=== PATIENT | female | born 1980 | race Caucasian/White ===

== ENCOUNTER 2017-09-17 14:25 | Emergency (ER) | payer MEDICARE, SELFPAY ==
[2017-09-17 14:26] VITALS: BP 109/77; PULSE 81; RESP 16; TEMP 36.5; O2SAT 96; BMI 23.2
--- NOTE | 2017-09-17 14:37 | ED.VISSUMM ---
- ER Visit Summary Date of Service: 09/17/17 Chief Complaint: Diarrhea History of Present Illness: The patient is a 37 F who presents with diarrhea. She has had this for 3 days. She has 5-6 episodes per day. Nonbloody. She also has some mild abdominal cramping with this. Denies nausea or vomiting. She tried Kaopectate but it did not help. She denies any fevers. She also complains of a scab on the right arm it has been there for 4 months. No bleeding or drainage Physical Examination: Vital signs reviewed. HEENT exam unremarkable. Heart is regular rate and rhythm without murmurs. Lungs are clear to auscultation. Abdomen is soft and nontender. Extremities reveal no edema. Skin exam shows a small scabbed area on the proximal right forearm. No bloody drainage or purulent drainage. Neurologic exam normal. Test Results: None indicated Emergency Department Course and Treatment: Patient will be treated with Imodium for the diarrhea. I do not feel any testing is necessary as her exam is very benign. I will give her bacitracin to put on the wound. She will be given a PCP to follow-up Treatment Plan: [] Disposition: Discharge Impression: Diarrhea, right arm wound This note was generated with Nitro dictation software. It may contain incorrect words, spelling, and punctuation that were not noted in review of the chart prior to signing ED Disposition - Plan for ED Patient: Chief Complaint: Diarrhea Referrals: [facility] Doctor,Out of [Primary Care Provider] -
--- NOTE | 2017-09-17 14:39 | ED.DEP ---
ED Disposition - Plan for ED Patient: Disposition: Home or Assisted Living Chief Complaint: Diarrhea Instructions: ED Diarrhea Viral Prescriptions: Loperamide [Imodium] 2 mg PO Q6H PRN PRN #12 cap PRN Reason: Diarrhea Bacitracin 3.5 gm OP BID #1 oint...g. Referrals: [facility] Doctor,Out of [Primary Care Provider] -
[2017-09-17 15:15] VITALS: PULSE 85; RESP 16; O2SAT 98
== END 2017-09-17 15:17 | disposition home or self-care (01) ==
PROVIDERS: Emergency Provider Emergency Medicine
DX: R19.7 Diarrhea, unspecified (principal); R10.9 Unspecified abdominal pain; M79.7 Fibromyalgia; Z72.0 Tobacco use; R23.4 Changes in skin texture
CPT/HCPCS: 99282

== ENCOUNTER 2017-12-13 17:44 | Emergency (ER) | payer MEDICARE, SELFPAY ==
[2017-12-13 17:45] VITALS: BP 132/85; PULSE 96; RESP 17; TEMP 36.8; O2SAT 99; BMI 24.1
--- NOTE | 2017-12-13 17:57 | NURSING ---
NO LW OR POA
--- NOTE | 2017-12-13 18:37 | EKG12_ITS ---
Test Reason : CP Blood Pressure : / mmHG Vent. Rate : 095 BPM Atrial Rate : 095 BPM P-R Int : 112 ms QRS Dur : 080 ms QT Int : 368 ms P-R-T Axes : 061 -28 073 degrees QTc Int : 462 ms Normal sinus rhythm Low voltage QRS (LIMB LEADS) Confirmed by ERICKSON GUERRERO, SREE ([id number]), make up editor DARRIAN BOYER ([id number]) on 12/17/2017 2:26:02 PM Referred By: JANIE Confirmed By:SREE ALMENDAREZ MD
--- NOTE | 2017-12-13 18:40 | RAD_ITS ---
STUDY: X-RAY CHEST REASON FOR EXAM: Female, 37 years old. Chest pain TECHNIQUE: A single frontal view of the chest was obtained. COMPARISON: December 12, 2014 FINDINGS: The lungs are adequately aerated. There are no focal airspace opacities. There is no demonstrated pleural abnormality. The cardiac silhouette is normal in size. The mediastinum and hilar regions are unremarkable. Normal visualized pulmonary arteries. Normal visualized aortic arch and descending thoracic aorta. There are diffuse degenerative changes of the visualized spine. The visualized ribs, clavicles, and shoulders are unremarkable. There is no demonstrated abnormality of the visualized upper abdomen. RAD/Chest 1 View (Portable) IMPRESSION: No acute cardiopulmonary abnormalities. Electronically Signed: Julita Philip MD at 19:33 EDT Tel Direct: [phone], Service support ,
[2017-12-13 18:49] VITALS: BP 107/84; PULSE 84; RESP 16; O2SAT 96
[2017-12-13] MEDS: Ketorolac 30 MG/ML Syringe IV (18:49)
[2017-12-13 19:04] LABS: Absolute Neutrophil Count 4.9 X10^3/uL (2.0-7.7); Basophil# 0.02 X10^3/uL; Basophil% 0.3 % (0-1); Eosinophil# 0.14 X10^3/uL; Eosinophils% 1.8 % (0-5); Hematocrit 41.3 % (37-47); Hemoglobin 14.3 g/dl (12.0-15.0); Mean Corp Hgb Conc 34.6 g/gl (32-36); Mean Corpuscular Hgb 32.9 pg (27.0-32.0); Mean Corpuscular Volume 94.9 fL (81-99); Mean Platelet Vol. 11.6 fl (6.2-12.0); Monocyte# 0.59 X10^3/uL; Monocyte% 7.7 % (0-10); Neutrophil # 4.93 X10^3/uL (2.7-7.7); Neutrophil % 64.1 % (47-70); Platelet Count 237 K/mm3 (150-450); RBC Distribution Width CV 12.4 % (11.6-14.6); RBC Distribution Width SD 43.3 fl (35.1-43.9); Red Blood Count 4.35 M/mm3 (4.2-5.4); White Blood Count 7.7 K/mm3 (4.4-11.0)
[2017-12-13 19:07] LABS: Anion Gap 5 (5-15); BUN 9 mg/dL (7-18); BUN/Creat Ratio 15.2 RATIO (10-20); Calcium,Total 9.3 mg/dL (8.5-10.1); Chloride 104 mmol/L (98-107); Creatinine, Serum 0.59 mg/dL (0.55-1.02); EST Glomerular Filtration Rate 120 mL/min (>60); Est Glom Filt Rate - Afr Amer 145 mL/min (>60); Estimated Creatinine Clearance 101.25 ml/min; Glucose 102 mg/dL (74-106); Magnesium 2.3 mg/dL (1.6-2.6); Potassium 3.6 mmol/L (3.5-5.1); Sodium Level 138 mmol/L (136-145); Thyroid Stim Hormone (TSH) 0.83 uIU/mL (0.358-3.74)
[2017-12-13 19:29] LABS: POSITIVE COUNT NO; POSITIVE DIFFERENTIAL NO; POSITIVE MORPHOLOGY NO
[2017-12-13 20:07] VITALS: BP 114/81; PULSE 87; RESP 15; O2SAT 98
[2017-12-13] MEDS: Ondansetron ODT 4 MG Tablet 8 MG PO (20:51)
--- NOTE | 2017-12-13 21:08 | ED.VISSUMM ---
- ER Visit Summary Date of Service: 12/13/17 Chief Complaint: Left chest pain History of Present Illness: The patient is a 37 F who states that earlier today she developed some palpitations. She states that her heart seemed to be racing and then she developed burning in the left upper aspect of her chest near her shoulder. And she began to feel some tingling in the left arm. She wonders if this is reaction to the Bactrim she started on Saturday for sinus infection. She states this does not seem like her normal anxiety. She states the symptoms began maybe an hour or hour and a half before arrival in the department and after she arrived to the department her heart beating fast seemed to resolve. Physical Examination: Afebrile vital signs are stable Gen: Well-nourished well-developed Head: Normocephalic atraumatic Eyes: Perrl EOMI ENT: TMs clear no rhinorrhea moist mucous membranes Neck: Supple no lymphadenopathy no JVD nontender CVS: Regular rate rhythm no murmurs normal S1-S2 Respiratory: No distress clear to auscultation bilaterally chest nontender Abdomen: Soft nontender nondistended normal bowel sounds no masses Back: Nontender Extremity: Nontender no edema Skin: Normal color no rash Neuro: alert orientated ?3 CN II-XII intact normal strength sensation reflexes gait cerebellar Psych: Normal affect normal mood Test Results: EKG shows a normal sinus rhythm at a rate of 95. Chest x-ray is negative. CBC chemistries TSH magnesium and troponin negative Emergency Department Course and Treatment: Patient developed some nausea. She received Zofran. Patient's KALE score 0. I do not believe this is pulmonary embolism, ACS, dissection, or other life-threatening event. We talked about the possibility of shingles in his she should return to the emergency department. Patient is comfortable with home observation and ibuprofen. Return if worsening or concerns Impression: 1. Atypical chest pain This note was generated with QuantumSphere dictation software. It may contain incorrect words, spelling, and punctuation that were not noted in review of the chart prior to signing ED Disposition - Plan for ED Patient: Disposition: Home or Assisted Living Chief Complaint: Chest Pain Instructions: ED Chest Pain Atypical Unkn Cause Referrals: Fast,Lena, DO [NON-STAFF] - 1 Week if not improving
[2017-12-13 21:22] VITALS: BP 112/82; PULSE 85; RESP 15; O2SAT 100
== END 2017-12-13 21:22 | disposition home or self-care (01) ==
PROVIDERS: Emergency Provider Emergency Medicine
DX: R07.89 Other chest pain (principal); R20.2 Paresthesia of skin; R11.0 Nausea; J32.9 Chronic sinusitis, unspecified; F32.9 Major depressive disorder, single episode, unspecified; Z79.899 Other long term (current) drug therapy; Z72.0 Tobacco use
CPT/HCPCS: 71045; 80048; 83735; 84443; 84484; 85025; 93005; 96374; 99285

== ENCOUNTER 2020-06-03 16:49 | Emergency (ER) | payer MEDICARE, SELFPAY ==
[2020-06-03 16:50] VITALS: BP 105/88; PULSE 104; RESP 18; TEMP 37.1; O2SAT 96; BMI 23.2
--- NOTE | 2020-06-03 17:16 | ED.RN ---
PT STATED THAT SHE WAS GOING TO [facility]
== END 2020-06-03 18:06 ==
PROVIDERS: Emergency Provider Emergency Medicine
DX: R11.2 Nausea with vomiting, unspecified (principal); R19.7 Diarrhea, unspecified

== ENCOUNTER 2020-08-28 20:02 | Emergency (ER) | payer MEDICARE, MEDICAID, SELFPAY ==
[2020-08-28 20:03] VITALS: BP 145/78; PULSE 77; RESP 18; TEMP 36.7; O2SAT 99; BMI 23.2
--- NOTE | 2020-08-28 20:35 | CT_ITS ---
STUDY: CT ABDOMEN AND PELVIS WITHOUT CONTRAST REASON FOR EXAM: Female, 39 years old. Flank pain RADIATION DOSAGE (If Supplied By Facility): CTDIvol = ( 6.14 ) mGy, DLP = ( 286.89 ) mGycm TECHNIQUE: Transaxial images were obtained from the dome of the diaphragm to the symphysis pubis without oral contrast, and without intravenous contrast. Sagittal and coronal images were reconstructed. Individualized dose optimization techniques were used for this CT. COMPARISON: None. FINDINGS: The visualized lung bases are unremarkable. The visualized portions of the heart are within normal limits. There is hepatomegaly with diffuse hepatic enlargement. Normal gallbladder and extrahepatic biliary system. Normal spleen. Normal pancreas. Normal bilateral adrenal glands. Normal right kidney. Normal left kidney. No definite renal or ureteral stones are seen. There is no hydronephrosis on either side. Evaluation of the GI tract is limited by absence of oral contrast. Cannot exclude stomach wall thickening. No dilated loops of bowel or evidence for obstruction. Cannot exclude segmental thickening of the santos of the small or large bowel. Cannot exclude enteritis or colitis. Marked diffuse fecal retention. Appendix within normal limits. Normal abdominal aorta. Normal inferior vena cava. Normal retroperitoneum. Normal urinary bladder. There is absence of the uterus consistent with a prior hysterectomy. Normal abdominal wall. Normal osseous structures. CT/Abdomen/Pelvis without Cont IMPRESSION: No definite acute abnormality. No renal or ureteral stones. Marked diffuse fecal retention. Electronically Signed: Desmond Maher MD at 21:53 EDT , Service support ,
--- NOTE | 2020-08-28 20:38 | ED.VIS.GEN ---
History of Present Illness Chief Complaint: Abd Pain Narrative: Patient is a 39-year-old female who presents with abdominal pain. She initially noted right lower quadrant pain this morning but it seemed to improve through the day. It returned and was more severe and she also now has nausea. Her pain is sharp and stabbing. It does radiate through to the back. It is colicky. No history of prior similar symptoms. No urinary symptoms such as dysuria, frequency, urgency. She has had a hysterectomy. She reports nausea without vomiting. No diarrhea. No fevers. No history of ureterolithiasis. Past Medical History - Allergies and Home Meds Allergies/Adverse Reactions: Allergies dicyclomine HCl [From Bentyl] Allergy (Verified 08/28/20 20:05) Itching Iodinated Contrast Media Allergy (Verified 08/28/20 20:05) Other venom-honey bee [bee venom (honey bee)] Allergy (Verified 08/28/20 20:05) Anaphylaxis Primary Care Physician: Care Physician,No Primary [Primary Care Provider] - Past Medical History: None Surgical History: hysterectomy Smoking Status: Current every day smoker Review of Systems All systems negative except as indicated General: Denies: Fever Eyes: Denies: Visual changes - bilaterally ENT: Denies: Bilateral ear pain Cardiovascular: Denies: Chest pain Respiratory: Denies: Dyspnea Gastrointestinal: Reports: Abdominal pain, Nausea. Denies: Vomiting, Diarrhea Genitourinary: Denies: Dysuria, Frequency Musculoskeletal: Denies: Myalgias, Arthralgias Skin: Denies: Rash Neurological: Denies: Headache Hematologic: Denies: Easy bruising Allergy: Denies: Uticaria Physical Exam Vital Signs/Narrative: Vital Signs Temp Pulse Resp BP Pulse Ox 08/28/20 20:03 98.0 F 77 18 145/78 H 99 Inital Vital Signs reviewed: Yes General: Well nourished Head: Normocephalic Eyes: EOMI ENT: Moist mucous membranes Neck: Supple Cardiovascular: Regular rate, Regular rhythm Respiratory: No distress, CTA bilaterally Abdomen: Soft, Nondistended, Tender - Patient has right lower quadrant abdominal tenderness without guarding without rebound Skin: Normal color Neurological: Alert Psychological: Normal affect Diagnostic/Tx/Re-eval Impressions Abdomen/Pelvis CT 08/28/20 20:35 IMPRESSION: No definite acute abnormality. No renal or ureteral stones. Marked diffuse fecal retention. Electronically Signed: Desmond Maher MD at 21:53 EDT , Service support , 08/28/20 20:35 Abdomen/Pelvis without Cont [CT] Stat Laboratory Results 08/28/20 08/28/20 08/28/20 20:20 20:58 20:58 WBC 8.6 RBC 4.58 Hgb 14.4 Hct 42.8 MCV 93.4 MCH 31.4 MCHC 33.6 RDW Std Deviation 42.6 RDW Coeff of Favian 12.3 Plt Count 230 MPV 11.6 Immature Gran % (Auto) 0.100 Neut % (Auto) 66.8 Lymph % (Auto) 24.1 [place] % (Auto) 7.5 Eos % (Auto) 0.9 Baso % (Auto) 0.6 Absolute Neuts (auto) 5.7 Absolute Lymphs (auto) 2.07 Nucleated RBC % 0 Sodium 137 Potassium 3.5 Chloride 106 Carbon Dioxide 25.0 Anion Gap 6 BUN 7 Creatinine 0.46 L Estim Creat Clear Calc 127.29 Est GFR (MDRD) Af Amer 189 Est GFR (MDRD) Non-Af 156 BUN/Creatinine Ratio 15.1 Glucose 71 L Calcium 9.4 Urine Color Yellow Urine Clarity Sl. Cloudy Urine pH 8.0 Ur Specific [place] 1.015 Urine Protein Negative Urine Glucose (UA) 250 H Urine Ketones Negative Urine Occult Blood Negative Urine Nitrite Negative Urine Bilirubin Negative Urine Urobilinogen Normal Ur Leukocyte Esterase Negative Urine RBC 0 SEEN Urine WBC 0-5 SEEN Ur Squamous Epith Cells 0-5 SEEN Urine Bacteria 1+ Urine Mucus 0 SEEN - Medical Decision Making Patient was given IV fluids, Toradol, Zofran. She is improved on reevaluation. Laboratory studies and urinalysis unremarkable. CT of the abdomen pelvis shows marked fecal retention otherwise no acute findings. Patient was advised of these findings. She was advised to start a laxative such as MiraLAX. She understands to return for new or worsening symptoms and was advised on signs and symptoms to monitor for. Patient discharged. ED Disposition - Plan for ED Patient: Disposition: Home or Assisted Living Diagnosis: Abdominal pain, Constipation Instructions: ED Constipation (Adult), ED Unknown Causes of Abdominal ... Referrals: Care Physician,No Primary [Primary Care Provider] -
[2020-08-28] MEDS: Ondansetron 4 MG/2 ML Vial IV (21:02)
[2020-08-28] MEDS: Ketorolac 30 MG/ML Syringe IV (21:02)
[2020-08-28] MEDS: 0.9% Normal Saline 1,000 ML 1000 ML IV (21:02)
[2020-08-28 21:12] LABS: Mucous, Urine 0 SEEN /hpf (<or=2+); Red Blood Cells-Urine 0 SEEN /hpf (0-5)
[2020-08-28 21:13] LABS: Absolute Lymphocyte Count 2.07 X10^3/uL (0.83-4.51); Absolute Neutrophil Count 5.7 X10^3/uL (2.0-7.7); Basophil# 0.05 X10^3/uL; Basophil% 0.6 % (0-1); Eosinophil# 0.08 X10^3/uL; Eosinophils% 0.9 % (0-5); Hematocrit 42.8 % (37-47); Hemoglobin 14.4 g/dL (12.0-15.0); Lymphocyte # 2.07 X10^3/ul (4.0); Lymphocyte % 24.1 % (19-41); Mean Corp Hgb Conc 33.6 g/dL (32-36); Mean Corpuscular Hgb 31.4 pg (27.0-32.0); Mean Corpuscular Volume 93.4 fL (81-99); Mean Platelet Vol. 11.6 fl (6.2-12.0); Monocyte# 0.64 X10^3/uL; Monocyte% 7.5 % (0-10); NRBC Flagged by Analyzer 0 % (0-5); Neutrophil # 5.74 X10^3/uL (2.7-7.7); Neutrophil % 66.8 % (47-70); Platelet Count 230 K/mm3 (150-450); RBC Distribution Width CV 12.3 % (11.6-14.6); RBC Distribution Width SD 42.6 fl (35.1-43.9); Red Blood Count 4.58 M/mm3 (4.2-5.4); White Blood Count 8.6 K/mm3 (4.4-11.0)
[2020-08-28 21:14] LABS: Color, Urine Yellow (Yellow); Glucose, Dipstick 250 mg/dl (Normal); Ketone-Dipstick Negative (Negative); Leukocyte Esterase-Dipstick Negative /ul (Negative); Nitrite-Dipstick Negative (Negative); Occult Blood-Urine Negative /ul (Negative); Protein-Dipstick Negative (Negative); Specific Gravity, Urine 1.015 (1.002-1.030); Urine Bilirubin Dipstick Negative (Negative); Urine Clarity Sl. Cloudy (Clear); Urine Urobilinogen Normal (Normal)
[2020-08-28 21:22] LABS: Bacteria 1+ /hpf (None Seen); Squamous Epithelial Cells - UA 0-5 SEEN /hpf (5-10); White Blood Cells 0-5 SEEN /hpf (0-5)
[2020-08-28 21:26] LABS: Anion Gap 6 (5-15); BUN 7 mg/dL (7-18); BUN/Creat Ratio 15.1 RATIO (10-20); Calcium,Total 9.4 mg/dL (8.5-10.1); Chloride 106 mmol/L (98-107); Creatinine, Serum 0.46 mg/dL (0.55-1.02); EST Glomerular Filtration Rate 156 mL/min (>60); Est Glom Filt Rate - Afr Amer 189 mL/min (>60); Estimated Creatinine Clearance 127.29 ml/min; Glucose 71 mg/dL (74-106); Potassium 3.5 mmol/L (3.5-5.1); Sodium Level 137 mmol/L (136-145)
[2020-08-28 22:11] VITALS: BP 128/74; PULSE 78; RESP 18; O2SAT 100
== END 2020-08-28 22:12 | disposition home or self-care (01) ==
PROVIDERS: Emergency Provider Emergency Medicine
DX: R10.31 Right lower quadrant pain (principal); K59.00 Constipation, unspecified; F17.200 Nicotine dependence, unspecified, uncomplicated; R11.0 Nausea
CPT/HCPCS: 74176; 80048; 81001; 85025; 96361; 96374; 96375; 99283; J7030; A4216; J2405

== ENCOUNTER 2021-08-11 00:26 | Inpatient (IN) | payer MEDICARE, MEDICAID, SELFPAY ==
[2021-08-11] VITALS (13 sets, daily range): BP systolic 95–129; BP diastolic 53–90; PULSE 57–88; RESP 16; TEMP 36.6–36.7; O2SAT 97–100; BMI 23.5; BMI 22.8
--- NOTE | 2021-08-11 00:50 | CT_ITS ---
STUDY: CT BRAIN WITHOUT CONTRAST REASON FOR EXAM: Female, 40 years old. Seizure. TECHNIQUE: Transaxial CT imaging of the brain was performed without administration of intravenous contrast material. Individualized dose optimization techniques were used for this CT. COMPARISON: 08/31/2013 CT brain. FINDINGS: No evidence of intracranial hemorrhage, mass, infarct or hydrocephalus. No skull fracture. Visualized paranasal sinuses and mastoid air cells patent. Visualized extracranial soft tissues unremarkable. ASPECTS [address]/Brain/Head without Contrast IMPRESSION: Negative CT brain without contrast. Electronically Signed: Trip Alexis MD at 1:47 EDT Reading Location ID and State: [facility] / [place] Tel , Service support ,
--- NOTE | 2021-08-11 00:50 | EKG12_ITS ---
Test Reason : SZ Blood Pressure : / mmHG Vent. Rate : 067 BPM Atrial Rate : 067 BPM P-R Int : 120 ms QRS Dur : 086 ms QT Int : 424 ms P-R-T Axes : 075 -31 073 degrees QTc Int : 448 ms Normal sinus rhythm Left axis deviation Abnormal ECG Confirmed by OPAL GUERRERO, MARIANNE ([id number]), fashion editor BRITANY TALLEY ([id number]) on 08/14/2021 10:32:21 AM Referred By: Confirmed By:MARIANNE JOSEPH MD
--- NOTE | 2021-08-11 00:51 | EDS_ITS ---
HPI History of Present Illness Chief Complaint: Seizure Informant: patient and EMS Narrative Narrative: Presents by EMS from home for multiple seizure episodes this evening. Patient hard of hearing does not have her hearing aids however can read lips. Reported total of 5. Reported tonic-clonic patient does not recall the event. She is back to baseline reporting only fatigue. Reports history of absent and grand mal seizures she reports she was on Neurontin in the past however last seizure was 12 years ago she is weaned off of her Neurontin. Denies urinary symptoms. Total hysterectomy in the past. No cough. No recent vomiting or diarrhea. States did hit her head with one of the seizures. She states she was at a bar this evening drink 3 daiquiri's, she states she goes every 3 to 4 weeks usually drinks more. Denies recreational drug use. Prior similar symptoms: Yes PFSH PFSH Medical History Fibromyalgia Low glucose level Migraine Seizure Home Medications epinephrine 0.3 mg IM PRN 10/10/13 [History Last Taken Unknown] lorazepam 0.5 mg PO TID PRN PRN 09/17/17 [History Last Taken Unknown] Allergy/AdvReac Type Severity Reaction Status Date / Time dicyclomine HCl [From Bentyl] Allergy Itching Verified 08/11/21 00:35 Iodinated Contrast Media Allergy Other Verified 08/11/21 00:35 venom-honey bee Allergy Anaphylaxis Verified 08/11/21 00:35 [bee venom (honey bee)] Surgical History H/O: hysterectomy Social History Smoking Status: Former smoker ROS ROS ED Constitutional Constitutional ED: Denies chills, fever(s) or sweats Eyes Eyes: Denies change in vision ENT ENT ED: Denies dysphagia or sore throat Cardiovascular Cardiovascular: Denies chest pain, leg edema, palpitations or racing heartbeat Respiratory/Chest Respiratory/Chest: Denies cough, dyspnea or dyspnea on exertion Gastrointestinal Gastrointestinal: Denies abdominal pain, diarrhea, nausea or vomiting Genitourinary Genitourinary ED: Denies dysuria, hematuria or urinary frequency Musculoskeletal Musculoskeletal: Denies back pain, extremity pain or neck pain Integumentary Denies rash or wounds Neurologic Neurologic: Reports headache(s) and other Details: Seizures ; Denies paresthesias or weakness EXAM Physical Exam Const Vital Signs: 08/11/21 00:30 08/11/21 00:35 Temperature 97.9 F Temperature Source Temporal Pulse Rate 71 Respiratory Rate 16 Blood Pressure 129/90 H 129/90 H Blood Pressure Mean 103 103 Pulse Ox 100 Oxygen Delivery Method Room Air Positive well nourished and well developed Constitutional Narrative: GCS 15. General Appearance ED: well developed and NAD HEENT Reports TM's clear and moist mucous membranes normocephalic and atraumatic; Negative for trauma Tympanic Membrane ED: Yes TM's clear Eyes PERRL, EOMs intact bilaterally and conjunctivae normal General Eye ED: Yes normal appearance of both eyes Neck no lymphadenopathy and supple General: Negative for tenderness Chest Wall Chest: Negative for tenderness Resp normal respiratory effort and normal air movement Effort and Inspection: symmetric chest movement; Negative for respiratory distress Cardio regular rate, regular rhythm and no murmurs Peripheral Pulses: pulses 2+ throughout GI normal to inspection, nondistended, normoactive bowel sounds and non-tender Palpation: Negative for guarding or rebound tenderness present Back/Spine no CVA tenderness and no thoracic nor lumbar tenderness Extremity normal to inspection General Extremety ED: Negative for edema or tenderness General Extremity: Negative for edema Neuro oriented x3, CN's II-XII intact bilaterally and no sensory deficits noted Sensorium / Orientation: awake and alert Skin no rashes or lesions noted and no wounds MDM MDM MDM Narrative Medical decision making narrative: Recurrent seizures last one being [address] head is ordered, laboratory studies, UA and tox screen. Seizure precautions. Currently back to baseline with only fatigue symptoms. Patient will be started on Keppra IV. With multiple episodes of seizures recurrent not on medications will likely need admission. I discussed with hospitalist Dr. Garcia on her arrival and evaluation. He will evaluate the patient. 0220: In the interim system went down time for upgrades. Results of CT brain by paper reviewed negative. Labs hemoglobin 14.5 sodium 140 creatinine 0.60. No recurrent seizures on reevaluation. Patient pending urine collection at this time. Patient admitted to PCU under hospitalist service. Tox screen returned negative. Urine also negative for infection. Lab Data Attestation: I reviewed the patient's lab results. Labs: Laboratory Results - last 24 hr 08/11/21 08/11/21 00:30 00:30 Sodium 140 Potassium 3.6 Chloride 105 Carbon Dioxide 28.0 Anion Gap 7 BUN 6 L Creatinine 0.60 Estim Creat Clear Calc 96.60 Est GFR (MDRD) Af Amer 141 Est GFR (MDRD) Non-Af 116 BUN/Creatinine Ratio 10.0 Glucose 79 Calcium 9.9 Phosphorus 2.8 Magnesium 2.3 Total Bilirubin 0.50 AST 13 L ALT 20 Alkaline Phosphatase 79 Total Protein 7.4 Albumin 4.2 Globulin 3.2 Albumin/Globulin Ratio 1.3 Radiography Diagnostic Testing: Clinical Impression(s) from Imaging Studies Brain CT 08/11/21 00:50 IMPRESSION: Negative CT brain without contrast. Electronically Signed: Trip Alexis MD at 1:47 EDT Reading Location ID and State: [address] [place] [address] Tel , Service support , Discharge Plan Dx/Rx/DC Orders Clinical Impression: Recurrent seizures Disposition Disposition: Acute Care Hospital [facility] Discharge Date/Time: 08/11/21 03:15
--- NOTE | 2021-08-11 02:28 | HP.PCM.HOS_ITS ---
HPI - General General Date of Admission: 08/11/21 Date of Service: 08/11/21 Chief Complaint: Recurrent seizure episode on 08/11/2019 tonight HPI Narrative YARIEL JACOBSEN, is a 40 F was brought to ED by EMS escort for recurrent episode of seizures. She has history of seizure disorder last episode about 12 years ago. She was weaned off gabapentin by the neurologist 6 years ago. Last night, she came to home about 10 PM from the bar after 3 glasses of a strawberry daiquiris, and kind of cocktail alcohol and she did not feel well. She was feeling out of her body as he described me with lightheadedness. She went to the bathroom and then laid down on the floor. She was in the bathroom for a while therefore went into the bathroom to check her. As per her daughter, Jaden whom I talked on phone and her son present in the room, she had recurrent 4-5 episodes each lasting for about 2 seconds. During seizure episode she was not responding verbally or with touch, blank look with eyes rolled out. No urinary or fecal incontinence. No nausea, vomiting, diarrhea or headache. No tongue bite. Her daughter described her body was stiff and hard but no clonic rhythmic movement. She called EMS when EMS picked her up she came back to her normal self. She herself does not remember the episode. She normally drinks 4 strawberry cocktail every 3 to 4 weeks but did not had this kind of seizure episode. She also has history of smoking in the past but she quit in July 2020. Other comorbidities include migraine headache, anxiety and depression, restless leg syndrome. She takes Midrin for acute migraine headache. Not on prophylac tic migraine medication. Family history is positive for migraine headache and seizure in her mother. In ED, initial work-up was nondiagnostic. EKG normal sinus rhythm LAD 67 respond. CTA does not show acute change. Labs reviewed. [facility] Medical History Seizure Home Medications epinephrine 0.3 mg IM PRN 10/10/13 [History Last Taken Unknown] lorazepam 0.5 mg PO TID PRN PRN 09/17/17 [History Last Taken Unknown] Allergy/AdvReac Type Severity Reaction Status Date / Time dicyclomine HCl [From Bentyl] Allergy Itching Verified 08/11/21 00:35 Iodinated Contrast Media Allergy Other Verified 08/11/21 00:35 venom-honey bee Allergy Anaphylaxis Verified 08/11/21 00:35 [bee venom (honey bee)] Surgical History H/O: hysterectomy Social History Smoking Status: Former smoker ROS ROS Narrative 14 ROS is incomplete because of seizure episode and acute encephalopathy. Rest as mentioned by her daughter on phone and son. Constitutional: Reports fatigue and weakness. Admission HPI. No fever, cough, URI or flulike symptoms or UTI. HEENT: Reports systems reviewed and no addt'l complaints, except as documented Respiratory/Chest: Denies chest pain, shortness of breath at rest or with exertion Gastrointestinal: Denies coffee ground emesis, hematemesis or vomiting Genitourinary: Denies burning urination or new urinary tract symptoms Musculoskeletal: Denies joint pain or arthritis. As fibromyalgia. Neurologic: No acute headache. History of chronic migraine headache skin: No ulcer. No rash Endocrinology: Reports systems reviewed and no addt'l complaints, except as documented Hematologic/Lymphatic: Reports systems reviewed and no addt'l complaints, except as documented Vital Signs Vital Signs Vital Signs: 08/11/21 00:30 08/11/21 00:35 Temperature 97.9 F Temperature Source Temporal Pulse Rate 71 Respiratory Rate 16 Blood Pressure 129/90 H 129/90 H Blood Pressure Mean 103 103 Pulse Ox 100 Oxygen Delivery Method Room Air Weight Weight: 128 lb 11.999 oz Body Mass Index (BMI) 23.5 Physical Exam Narrative General: Alert, Oriented x3, Cooperative, mild fatigue HEENT: Atraumatic, PERRLA, EOMI, Normocephalic Oral: Oral mucosa dry. No Gingival or Mucosal Lesions/ Ulcerations Neck: Supple, No JVD, Negative Carotid Bruits Lungs: Air entry diminished in bilateral lung bases. No crepitation/rhonchi Cardiovascular: Regular rate, Regular Rhythm, Normal S1, Normal S2, No murmurs Abdomen: Bowel Sounds Present, Soft, Non Tender, Non-Distended : No renal angle tenderness. No suprapubic tenderness. Extremities: No edema, Capillary Refill Less than 3 Seconds Skin: No rashes, No breakdown Musculoskeletal: No Tenderness to Palpation of Joints or Extremities Neurological: Cranial nerves II-XII grossly intact, DTR 2+/4 and Symmetrical, Neuro grossly intact. No seizure episode in ED Psych/Mental Status: Flat affect. Results Lab / Micro Data Result Diagrams: 08/11/21 00:30 08/11/21 00:[address] 08/11/21 00:50 IMPRESSION: Negative CT brain without contrast. Electronically Signed: Trip Alexis MD at 1:47 EDT Reading Location ID and State: [facility] / [place] Tel , Service support , Assessment & Plan Assessment/Plan (1) Recurrent seizures: PLAN: 1. Recurrent seizure suggestive of epilepsy most likely generalized tonic seizure: The exact type, class of epilepsy is unclear. In the past patient has has seen multiple neurologist for migraine and seizure episode. Her migraine episodes required Decadron and Depakote. As per neurologist note on August 2013 she refused AED and migraine headache prophylactic medication. Patient started on IV 1 g Keppra and then 500 mg IV every 12 hourly. Ativan 1 mg IV every 4 hourly as needed for acute seizure episode. IV fluid normal saline ordered 2. Acute encephalopathy most likely due to seizure episode: Resolved. Serum potassium 3.6. BUN/creatinine normal. Serum sodium, chloride and bicarb normal. AST and ALT normal. UA and U tox pending. Patient denies acute burning micturition or neurologic intact symptoms. No signs or symptoms suggestive of infection in the history. 3. Chronic migraine headache: Advised to follow-up with neurologist as an outpatient for starting prophylactic migraine medication. During hospital course, Motrin 400 to 6 mg q. 4 hourly as needed for acute migraine headache. For severe headache, consider triptan. At present she does not have a headache. 4. Other comorbidities include fibromyalgia, anxiety and depression: Patient is not any specific medication for fibromyalgia. Home medication shows lorazepam 0.5 mg p.o. 3 times daily as needed, exact indication unclear, perhaps for anxiety. VT prophylaxis, moderate risk: Lovenox 40 subcu daily discontinue if platelet count drops less than 50,000 or hemoglobin less than 8 g% Full code. Charges/Coding Visit Charges Inpatient E&M: 45122 Init Hosp L3
[2021-08-11 02:29] LABS: ALB/GLOB Ratio 1.3 RATIO (0.9-2.4); AST(SGOT) 13 U/L (15-37); Alanine Aminotransfer ALT/SGPT 20 U/L (13-56); Albumin, Serum 4.2 g/dL (3.2-5.0); Alkaline Phosphatase 79 U/L (45-117); Anion Gap 7 (5-15); BUN 6 mg/dL (7-18); Calcium,Total 9.9 mg/dL (8.5-10.1); Chloride 105 mmol/L (98-107); EST Glomerular Filtration Rate 116 mL/min (>60); Est Glom Filt Rate - Afr Amer 141 mL/min (>60); Globulin 3.2 g/dL (2.2-4.2); Glucose 79 mg/dL (74-106); Potassium 3.6 mmol/L (3.5-5.1); Protein, Total 7.4 g/dL (6.4-8.2); Sodium Level 140 mmol/L (136-145)
[2021-08-11 02:43] LABS: Mucous, Urine 0 SEEN /hpf (<or=2+); Red Blood Cells-Urine 0 SEEN /hpf (0-5)
[2021-08-11 02:48] LABS: Color, Urine Yellow (Yellow); Glucose, Dipstick 1000 mg/dl (Normal); Ketone-Dipstick 15 mg/dl (Negative); Leukocyte Esterase-Dipstick Negative /ul (Negative); Nitrite-Dipstick Negative (Negative); Occult Blood-Urine 25 /ul (Negative); Protein-Dipstick 30 mg/dl (Negative); Specific Gravity, Urine 1.015 (1.002-1.030); Urine Bilirubin Dipstick Negative (Negative); Urine Clarity Clear (Clear); Urine Urobilinogen Normal (Normal)
[2021-08-11 02:54] LABS: Magnesium 2.3 mg/dL (1.6-2.6); Phosphorus 2.8 mg/dL (2.5-4.9)
[2021-08-11 02:56] LABS: Amorphous Sediment 2+; Bacteria RARE /hpf (None Seen); White Blood Cells 0-5 SEEN /hpf (0-5)
[2021-08-11 02:57] LABS: Squamous Epithelial Cells - UA 0-5 SEEN /hpf (5-10)
[2021-08-11 03:33] LABS: Amphetamine Urine VISTA NEGATIVE (<1000 ng/mL); Barbiturate Urine VISTA NEGATIVE (< 200 ng/mL); Benzodiazepine Urine VISTA NEGATIVE (< 200 ng/mL); Cocaine Urine VISTA NEGATIVE (< 300 ng/mL); Ecstacy Urine VISTA NEGATIVE (< 500 ng/mL); Methadone Urine VISTA NEGATIVE (< 300 ng/mL); PCP Urine VISTA NEGATIVE (< 25 ng/mL); THC Urine VISTA NEGATIVE (< 50 ng/mL); Vista UDS pH Range 6
[2021-08-11] MEDS: 0.9% Normal Saline 1,000 ML 75 ML IV (04:03)
--- NOTE | 2021-08-11 05:55 | MRI_ITS ---
EXAM: MR HEAD WITHOUT INTRAVENOUS CONTRAST CLINICAL INDICATION: Seizure. Epilepsy disorder. TECHNIQUE: Multiplanar and multisequence MR images of the brain were obtained without intravenous contrast. This report was created using [employer] report generation technology. COMPARISON: MRI brain 08/31/2013. FINDINGS: BRAIN AND EXTRA-AXIAL SPACES: Unremarkable. No intra- or extra-axial hemorrhage. No evidence of acute infarct. No intracranial mass or mass effect. There is preservation of the guerrero/white matter interface. Posterior fossa structures are normal. Normal ventricles and cisterns. SELLA: Unremarkable. Normal sella turcica, pituitary gland, infundibular stalk, optic chiasm and hypothalamus. AUDITORY SYSTEM: Unremarkable. The internal auditory canals are patent. BONES/JOINTS: Unremarkable. No discrete lytic or blastic abnormalities. SINUSES: Unremarkable as visualized. Clear. MASTOID AIR CELLS: Unremarkable as visualized. Clear. ORBITS: Unremarkable as visualized. Both globes, extraocular muscles, optic nerves and retrobulbar fat appear unremarkable. VASCULATURE: Unremarkable as visualized. Normal flow voids in the major intracranial circulation. MRI/Brain without Contrast IMPRESSION: Normal MRI brain without intravenous contrast and unchanged since 08/31/2013. Electronically Signed: Miguel Jack MD at 12:01 EDT ,
[2021-08-11] MEDS: CLARIFY ORDER 1 EACH NOTE (07:01)
[2021-08-11 07:40] LABS: Hematocrit 41.9 % (37-47); Hemoglobin 14.5 g/dL (12.0-15.0); Lymphocyte % 20.4 % (19-41); Mean Corp Hgb Conc 34.6 g/dL (32-36); Mean Corpuscular Hgb 32.3 pg (27.0-32.0); Mean Corpuscular Volume 93.3 fL (81-99); Mean Platelet Vol. 11.4 fl (6.2-12.0); Neutrophil % 70.1 % (47-70); Platelet Count 288 K/mm3 (150-450); RBC Distribution Width CV 12.2 % (11.6-14.6); RBC Distribution Width SD 42.4 fl (35.1-43.9); Red Blood Count 4.49 M/mm3 (4.2-5.4); White Blood Count 9.3 K/mm3 (4.4-11.0)
[2021-08-11 07:41] LABS: Absolute Lymphocyte Count 1.89 X10^3/uL (0.83-4.51); Absolute Neutrophil Count 6.5 X10^3/uL (2.0-7.7); Eosinophils% 0.6 % (0-5); Monocyte% 7.6 % (0-10); NRBC Flagged by Analyzer 0 % (0-5)
--- NOTE | 2021-08-11 09:20 | TELEMED_ITS ---
[facility] Telemed has confirmed receipt of a request for visit. This document confirms receipt of the order initiating the consult. To find the results of the consultation, please view the patient's reports for the scanned Telemed Consult.
--- NOTE | 2021-08-11 09:55 | CASEMGMT ---
RN CM Face to Face with patient for initial transition planning/care coordination assessment. RN CM introduced self and role at [facility]. Patient lying in bed, alert and oriented. Patient willing to participate in assessment and is able to answer all questions appropriately. Care providers, pharmacy, and demographics verified. Patient wishes to discharge home, denies need for home health at this time. Patient states she has no further needs or concerns at this time. CM to follow for discharge planning needs that may arise. PCP: Christopher Specialists: none Preferred Pharmacy: [facility] Insurance: [employer] [facility] Prescription Benefit: yes Living Will/HPOA: none, working on making Daughter Jaden Ortiztutz HPOA LNOK: daughter Living Arrangements: Patient lives with daughter in a 2 story home with bed and bath on the first floor. 3 steps and railing to enter the home. Patient states she is independent at home. Transportation: father, friend DME/HHC: Patient states she has shower chair and walker at home. Patient denies previous HHC. Disposition Plan: Patient to discharge home with family support and follow-up plans in place. Lucinda HUERTA, RN, CM
[2021-08-11] MEDS: Enoxaparin 40 MG/0.4 ML Syringe SC (11:04)
[2021-08-11] MEDS: Meclizine HCl 25 MG Tablet PO (16:36)
--- NOTE | 2021-08-11 16:42 | PN.HOSP_ITS ---
Subjective Subjective Patient seen and examined this morning. She was being set up for EEG at time of review. She had no active complaint and had an uneventful night. She has not had any more seizures since admission. Review of systems otherwise negative. Objective Data Objective Data Vital Signs: Vital Signs Temp Pulse Resp BP Pulse Ox 98.1 F 71 16 95/53 L 99 08/11/21 13:45 08/11/21 13:45 08/11/21 13:45 08/11/21 13:45 08/11/21 15:35 Oxygen Delivery Method Room Air Weight: 125 lb 3.561 oz Body Mass Index (BMI) 22.8 Intake & Output: Intake and Output for Last 24 Hours 08/09/21 08/10/21 08/11/21 23:59 23:59 23:59 Intake Total 815 / 815 Balance 815 / 815 Lab / Micro Data Result Diagrams: 08/11/21 00:30 08/11/21 00:30 Labs: Laboratory Results - last 24 hr 08/11/21 00:30: WBC 9.3, RBC 4.49, Hgb 14.5, Hct 41.9, MCV 93.3, MCH 32.3 H, MCHC 34.6, RDW Std Deviation 42.4, RDW Coeff of Favian 12.2, Plt Count 288, MPV 11 .4, Immature Gran % (Auto) 0.300, Neut % (Auto) 70.1 H, Lymph % (Auto) 20.4, [place] % (Auto) 7.6, Eos % (Auto) 0.6, Baso % (Auto) 1.0, Absolute Neuts (auto) 6.5, Absolute Lymphs (auto) 1.89, Nucleated RBC % 0 08/11/21 00:30: Sodium 140, Potassium 3.6, Chloride 105, Carbon Dioxide 28.0, Anion Gap 7, BUN 6 L, Creatinine 0.60, Estim Creat Clear Calc 96.60, Est GFR (MDRD) Af Amer 141, Est GFR (MDRD) Non-Af 116, BUN/Creatinine Ratio 10.0, Glucose 79, Calcium 9.9, Total Bilirubin 0.50, AST 13 L, ALT 20, Alkaline Phosphatase 79, Total Protein 7.4, Albumin 4.2, Globulin 3.2, Albumin/Globulin Ratio 1.3 08/11/21 00:30: Phosphorus 2.8, Magnesium 2.3 08/11/21 02:40: Urine Color Yellow, Urine Clarity Clear, Urine pH 7.0, Ur Specific [place] 1.015, Urine Protein 30 H, Urine Glucose (UA) 1000 H, Urine Ketones 15 H, Urine Occult Blood 25 H, Urine Nitrite Negative, Urine Bilirubin Negative, Urine Urobilinogen Normal, Ur Leukocyte Esterase Negative, Urine RBC 0 SEEN, Urine WBC 0-5 SEEN, Ur Squamous Epith Cells 0-5 SEEN, Amorphous Sediment 2+, Urine Bacteria RARE, Urine Mucus 0 SEEN 08/11/21 02:40: Urine Opiates Screen NEGATIVE, Urine Methadone Screen NEGATIVE, Ur Barbiturates Screen NEGATIVE, Ur Phencyclidine Scrn NEGATIVE, Ur Amphetamines Screen NEGATIVE, MDMA (Ecstasy) Screen NEGATIVE, U Benzodiazepines Scrn NEGATIVE, Urine Cocaine Screen NEGATIVE, U Cannabinoids Screen NEGATIVE, Ur Drug Screen Comment Radiography Diagnostic Testing: Radiology Impression Brain CT 08/11/21 00:50 IMPRESSION: Negative CT brain without contrast. Electronically Signed: Trip Alexis MD at 1:47 EDT Reading Location ID and State: [facility] / [place] Tel , Service support , Brain MRI 08/11/21 05:55 IMPRESSION: Normal MRI brain without intravenous contrast and unchanged since 08/31/2013. Electronically Signed: Miguel Jack MD at 12:01 EDT Reading Location ID and State: [facility] / [place] , Service support , Physical Exam Const alert and oriented x3 Orientation / Consciousness: lethargic Exam Limitations: no limitations HEENT head/scalp atraumatic and moist oral mucous membranes Head and Scalp: normocephalic Eyes PERRL, EOMs intact bilaterally and conjunctivae normal Neck no lymphadenopathy, supple and no JVD Resp normal respiratory effort, no retractions, no use of accessory muscles and clear to auscultation bilaterally Cardio regular rate, regular rhythm, S1 normal heart sound, S2 normal heart sound and no murmurs GI normal to inspection, nondistended, normoactive bowel sounds, soft to palpation, non-tender and non-distended Extremity normal to inspection, full ROM and no clubbing, cyanosis or edema Peripheral Pulses: Yes pulses 2+ throughout Skin no rashes or lesions noted Neuro oriented x3, CN's II-XII intact bilaterally and moves all extremities Sensorium / Orientation: awake and alert Psych affect normal Assessment & Plan Assessment/Plan (1) Recurrent seizures: PLAN: #Seizures, concerning for breakthrough seizures * says she was weaned off her seizure meds a few months ago * had 3 drinks yesterday when she went out, and subseqeuntly had seizures at home, witnessed by her children * on Keppra * seizure precautions * EEG pending * MRI of the brain negative for any acute intracranial pathology * neurology consulted; await recs * seizure precautions * #Acute metabolic encephalopathy: resolved. Was likely due to post ictal state #Chronic migraine headache * on motrin prn for headache. * #Fibromyalgia, anxiety and depression: Stable. Ativan as needed DVT prophylaxis: Lovenox Charges/Coding Visit Charges Inpatient E&M: 74057 Subs Hosp L2
[2021-08-12] VITALS (8 sets, daily range): BP systolic 102–122; BP diastolic 57–83; PULSE 54–74; RESP 16–18; TEMP 36.5–37.7; O2SAT 97–99
[2021-08-12 07:13] LABS: Anion Gap 4 (5-15); BUN 11 mg/dL (7-18); BUN/Creat Ratio 27.2 RATIO (10-20); Calcium,Total 7.9 mg/dL (8.5-10.1); Chloride 109 mmol/L (98-107); EST Glomerular Filtration Rate 183 mL/min (>60); Est Glom Filt Rate - Afr Amer 221 mL/min (>60); Estimated Creatinine Clearance 144.91 ml/min; Glucose 87 mg/dL (74-106); Sodium Level 140 mmol/L (136-145)
[2021-08-12] MEDS: 0.9% Saline Lock 10 ML Syringe IV (09:52)
[2021-08-12] MEDS: Enoxaparin 40 MG/0.4 ML Syringe SC (11:03)
--- NOTE | 2021-08-12 16:23 | PN.HOSP_ITS ---
Subjective Subjective Patient seen and examined. She had an uneventful night and feels well. She has not had any more seizures. Review of systems otherwise negative. She is awaiting neurology review Objective Data Objective Data Vital Signs: Vital Signs Temp Pulse Resp BP Pulse Ox 99.9 F H 56 L 16 105/69 97 08/12/21 14:00 08/12/21 14:00 08/12/21 14:00 08/12/21 14:00 08/12/21 14:00 Oxygen Delivery Method Room Air Weight: 127 lb 10.362 oz Body Mass Index (BMI) 22.8 Intake & Output: Intake and Output for Last 24 Hours 08/10/21 08/11/21 08/12/21 23:59 23:59 23:59 Intake Total 1919 / 1919 105 / 105 Balance 1919 105 / 105 Lab / Micro Data Result Diagrams: 08/11/21 00:30 08/12/21 05:54 Labs: Laboratory Results - last 24 hr 08/12/21 05:54: Sodium 140, Potassium 4.0, Chloride 109 H, Carbon Dioxide 27.0, Anion Gap 4 L, BUN 11, Creatinine 0.40 L, Estim Creat Clear Calc 144.91, Est GFR (MDRD) Af Amer 221, Est GFR (MDRD) Non-Af 183, BUN/Creatinine Ratio 27.2 H, Glucose 87, Calcium 7.9 L Physical Exam Const alert, oriented x3 and no apparent distress Exam Limitations: no limitations HEENT head/scalp atraumatic and moist oral mucous membranes Head and Scalp: normocephalic Eyes PERRL, EOMs intact bilaterally and conjunctivae normal Neck no lymphadenopathy, supple and no JVD Resp normal respiratory effort, no retractions, no use of accessory muscles and clear to auscultation bilaterally Cardio regular rate, regular rhythm, S1 normal heart sound, S2 normal heart sound and no murmurs GI normal to inspection, nondistended, normoactive bowel sounds, soft to palpation, non-tender and non-distended Extremity normal to inspection, full ROM and no clubbing, cyanosis or edema Peripheral Pulses: Yes pulses 2+ throughout Skin no rashes or lesions noted Neuro oriented x3, CN's II-XII intact bilaterally and moves all extremities Sensorium / Orientation: awake and alert Psych affect normal Assessment & Plan Assessment/Plan (1) Recurrent seizures: PLAN: #Seizures, concerning for breakthrough seizures * says she was weaned off her seizure meds a few months ago * on Keppra * seizure precautions * EEG was negative for any evidence of seizure * MRI of the brain negative for any acute intracranial pathology * neurology consulted; await recs * seizure precautions * counseled about quitting or cutting down on her alcohol consumption as it lowers the seizure threshold * #Acute metabolic encephalopathy: resolved. Was likely due to post ictal state #Chronic migraine headache * on motrin prn for headache. * #Fibromyalgia, anxiety and depression: Stable. Ativan as needed DVT prophylaxis: Lovenox Disposition: for dc home once we have neurology recommendations about her seizure meds Charges/Coding Visit Charges OBSV E&M: 54570 Subsequent observation care L2
[2021-08-12 19:31] LABS: Bedside Glucose 126 mg/dL (74-106)
[2021-08-13] VITALS (8 sets, daily range): BP systolic 103–105; BP diastolic 65–85; PULSE 62–81; RESP 18–20; TEMP 36.9–37.2; O2SAT 97–99
[2021-08-13] MEDS: levETIRAcetam 500 MG Tablet PO (10:03)
[2021-08-13] MEDS: 0.9% Saline Lock 10 ML Syringe IV (10:05)
[2021-08-13] MEDS: Enoxaparin 40 MG/0.4 ML Syringe SC (10:07)
[2021-08-13] MEDS: DiphenhydrAMINE 50 MG/ML Syringe 25 MG IV (10:40)
--- NOTE | 2021-08-13 11:16 | MRI_ITS ---
HISTORY: seizures. TECHNIQUE: Multiplanar and multisequence MR images of the brain were obtained without and with IV gadolinium. IV Contrast dosage and agent: 12mL Dotarem. # of images incl. paperwork: 116. COMPARISON: Noncontrast examination 08/11/2021, 08/31/2013. FINDINGS: BRAIN PARENCHYMA: No enhancing mass in the brain parenchyma. CSF SPACES: Cerebral ventricles, cortical sulci, and other extra axial CSF spaces within normal limits in size. No mass effect or midline shift. Unchanged mild asymmetry of the temporal horns and adjacent small cysts. MRI/Brain WITH Contrast IMPRESSION: No evidence for enhancing intracranial mass. at 1611 Reported and signed by: Lisa Myers MD Electronically Signed: Lisa Myers MD at 16:10 EDT ,
--- NOTE | 2021-08-13 12:24 | PCM.DC.SUM ---
Providers Date of Admission: 08/11/21 Primary Care Physician: No Primary Care Phys Reason For Visit: RECURRENT SEIZURE Diagnosis Discharge Diagnosis (1) Recurrent seizures: Status: Acute Code(s): G40.909 - Epilepsy, unspecified, not intractable, without status epilepticus Medications at Discharge Home Medications epinephrine 0.3 mg IM PRN 10/10/13 lorazepam 0.5 mg PO TID PRN PRN 09/17/17 levetiracetam 500 mg PO BID #60 tab 08/13/21 Hospital Course Operations None Procedures Electroencephalogram Summary of Care Provided Minutes Spent on Discharge: 45 Hospital Course: Patient is a 40-year-old female with a past medical history as outlined was admitted through the ED with a complaint of seizures. She had a history of seizure disorder and her last episode was about 12 years ago. She was subsequently weaned off of her Keppra by her neurologist. On the night before admission, she went to the bar and had about 3 glasses of an alcoholic drink. She subsequently felt lightheaded when she got home and says her children came to check on her and noted that she was having recurrent episodes of seizures which lasted about 2 seconds each. She had about 4-5 episodes. She was not verbally responsive during the seizure and her eyes rolled to the back. She had no urinary or fecal incontinence. The EMS was called and she was brought to the ED. She was admitted and managed for seizures likely due to breakthrough seizures in a known patient with seizure disorder. She has CT of the brain which was negative. Neurology was consulted. She had EEG of the brain which was also normal. She had a brain MRI which was read as normal but per the neurologist from [facility] who reviewed her, head MRI without contrast demonstrated a diffusion weighted signal abnormality also seen on T2 which might signify a vascular entity or [place]. Neurology recommended that patient should have a repeat MRI with contrast to be certain there was no underlying inflammatory disease. Patient did tell me that her previous MRI had shown that she had abnormality in the brain I reviewed her MRI from 2013 which was also read as normal. Patient was transitioned to p.o. Keppra. She did have repeat MRI of the brain with contrast on 08/13/2021, report of which was pending at time of discharge. She remained stable and was discharged home on 08/13/2021 on p.o. Keppra-milligram twice daily. She was counseled to abstain from driving and also counseled to quit alcohol usage as it lowered her seizure threshold. She is to follow-up with her primary care doctor and was referred to neurology on outpatient basis. Patient seen and examined prior to discharge. She had no active complaints and felt well. Review of systems otherwise negative. Labs and vitals reviewed. Home medication reviewed and reconciled. Physical Exam Const alert, oriented x3 and no apparent distress General Appearance: cooperative, comfortable and well kempt Orientation / Consciousness: awake, oriented to person, oriented to place and oriented to time Exam Limitations: no limitations HEENT normocephalic, head/scalp atraumatic and moist oral mucous membranes Eyes PERRL, EOMs intact bilaterally and conjunctivae normal Neck no lymphadenopathy, supple and no JVD Resp normal respiratory effort, no retractions, no use of accessory muscles and clear to auscultation bilaterally Cardio regular rate, regular rhythm, S1 normal heart sound, S2 normal heart sound and no murmurs GI normal to inspection, nondistended, normoactive bowel sounds, soft to palpation, non-tender and non-distended Extremity normal to inspection, full ROM and no clubbing, cyanosis or edema Skin no rashes or lesions noted Neuro oriented x3, CN's II-XII intact bilaterally and moves all extremities Sensorium / Orientation: awake and alert Psych affect normal Weight / BMI Weight Weight: 132 lb 7.965 oz Body Mass Index (BMI) 22.8 ABG / Lab / Microbiology Data Result Diagrams: 08/11/21 00:30 08/12/21 05:54 Laboratory: Laboratory Results - last 24 hr 08/12/21 19:03: POC Glucose 126 H D/C Instructions Discharge Diet: No restrictions Discharge Activity: Return to Normal Activity Weight Bearing Status: Weight bearing as tolerated Call your doctor if you observe: Fever of 101 or Higher, Shortness of breath, Swelling in the ankles and - (seizures) Meaningful Use Info Meaningful Use Diagnoses (Choose all that apply): None applicable Discharge Plan Admission Admit Date/Time: 08/11/21 02:15 Primary Reason for Your Visit: seizures Attending Provider: Renuka Mccullough Primary Care Provider: Care Physician,No Primary Instructions Patient Instructions: EEG Ch, Discharge Instructions for Epilepsy Additional Instructions / Restrictions: counseled to not drive until cleared by neurology. Counseled to quit drinking as it lowers her seizure threshold Discharge Orders/Prescriptions Prescriptions: New levetiracetam 500 mg tablet 500 mg PO BID Qty: 60 RF: 2 Continued epinephrine 0.3 MG syringe 0.3 mg IM PRN RF: 0 lorazepam 0.5 MG tablet 0.5 mg PO TID PRN PRN (Reason: Anxiety) RF: 0 Referrals / Follow Up: Geovanna Ghotra MD [STAFF PHYSICIAN] - Within 2 Weeks (see to establish PCP relationship) Osei Mcmullen MD [STAFF PHYSICIAN] - Within 2 Weeks (see to establish neurology relationship) Care Physician,No Primary [Primary Care Provider] - Disposition Disposition (needs filled in before D/C Order can be placed): Home, Self Care Charges/Coding Visit Charges Inpatient E&M: 19290 Disch Hosp
--- NOTE | 2021-08-13 14:04 | NURSING ---
Pt called out to say she was having chest pain. pt states that she was sitting in her chair on her cell phone when she got left sided chest pain that was an instant pressure on my chest and felt like a starburst of pain. No radiation. Pain is still there but not as bad, feels sore.VS obtained, see intervention.
--- NOTE | 2021-08-13 14:22 | EKG12_ITS ---
Test Reason : CP Blood Pressure : / mmHG Vent. Rate : 068 BPM Atrial Rate : 068 BPM P-R Int : 118 ms QRS Dur : 076 ms QT Int : 416 ms P-R-T Axes : 059 -14 059 degrees QTc Int : 442 ms Normal sinus rhythm Low voltage QRS Borderline ECG When compared with ECG of 13-DEC-2017 17:44, No significant change was found Confirmed by OPAL GUERRERO, MARIANNE ([id number]), web editor BRITANY TALLEY ([id number]) on 08/15/2021 11:13:38 AM Referred By: NANCY Confirmed By:MARIANNE JOSEPH MD
--- NOTE | 2021-08-13 14:22 | NURSING ---
[facility] [employer] called and is aware that pt having chest pain and 12 lead ekg ordered.
[2021-08-13 16:12] LABS: Troponin-I HS < 3 pg/mL (3.0-54.0)
[2021-08-13 17:28] LABS: Troponin-I HS < 3 pg/mL (3.0-54.0)
== END 2021-08-13 18:21 | disposition home or self-care (01) | DRG 101 ==
LOC: ED 02:20 → PCU 02:58
PROVIDERS: Admitting Provider Internal Medicine; Emergency Provider Emergency Medicine; Visit Provider Student in an Organized Health Care Education/Training Program
DX: G40.409 Other generalized epilepsy and epileptic syndromes, not intractable, without status epilepticus (principal); F32.A Depression, unspecified; G43.709 Chronic migraine without aura, not intractable, without status migrainosus; M79.7 Fibromyalgia; F41.9 Anxiety disorder, unspecified; Z87.891 Personal history of nicotine dependence; H91.90 Unspecified hearing loss, unspecified ear
CPT/HCPCS: 36415; 70450; 70551; 70552; 80048; 80053; 80307; 81001; 82962; 83735; 84100; 84484; 85025; 93005; 95819; 97802; 99285; 99406; A9575; J7030; J7040; J7050; A4216

== ENCOUNTER 2021-09-05 17:10 | Emergency (ER) | payer MEDICARE, MEDICAID, SELFPAY ==
[2021-09-05 17:11] VITALS: BP 115/81; PULSE 84; RESP 16; TEMP 37.3; O2SAT 97; BMI 22.8
--- NOTE | 2021-09-05 17:51 | EDS_ITS ---
HPI History of Present Illness Chief Complaint: Lower Extremity Injury Detail of Chief Complaint: Right knee pain that started yesterday Informant: patient Onset/Context/Timing Current Severity: 12/27 Narrative Narrative: Patient presents with right knee pain that started yesterday. Patient states she was moving some furniture around and was moving a mattress up some steps. She states that after she moved the furniture is when she noticed that she had pain in her knee. She denies twisting it or falling or any direct trauma. Patient also has history of fibromyalgia and was not sure if maybe the weather was affecting her knee. She is able to walk on it but is painful. She rates her pain an 8 out of 10. [facility] Medical History Fibromyalgia Low glucose level Migraine Seizure Home Medications epinephrine 0.3 mg IM PRN 10/10/13 [History Last Taken Unknown] lorazepam 0.5 mg PO TID PRN PRN 09/17/17 [History Last Taken Unknown] levetiracetam 500 mg PO BID #60 tab 08/13/21 [Rx Last Taken Unknown] lamotrigine 25 mg tablet See Rx Instructions PO .COMPLEX #120 tab 08/15/21 [Rx Last Taken Unknown] sumatriptan succinate 50 mg tablet See Rx Instructions PO .COMPLEX 08/15/21 [History Last Taken Unknown] hydrocodone-acetaminophen 1 tab PO Q4H PRN PRN 2 Days #10 tablet 09/05/21 [Rx Last Taken Unknown] Allergy/AdvReac Type Severity Reaction Status Date / Time dicyclomine HCl [From Bentyl] Allergy Itching Verified 09/05/21 17:11 Iodinated Contrast Media Allergy Other Verified 09/05/21 17:11 venom-honey bee Allergy Anaphylaxis Verified 09/05/21 17:11 [bee venom (honey bee)] Family History Father Hypertension Heart disease Mother Myocardial infarction Brother Cancer Surgical History Cyst of ovary H/O: hysterectomy History of dental surgery Previous back surgery Social History (Updated 08/15/21 @ 11:27 by Lilian James) Smoking Status: Former smoker alcohol intake: current details: occasionally substance use type: does not use ROS ROS ED Constitutional Constitutional ED: Reports systems reviewed and no addt'l complaints, except as documented; Denies body ache(s), change in weight or chills Eyes Eyes: Denies acute decrease in peripheral vision, change in vision, double vision or loss of vision ENT ENT ED: Reports none; Denies ear pain, lip swelling, loss taste/smell, neck pain, otalgia or sore throat Cardiovascular Cardiovascular: Reports none; Denies abdominal pain, chest pain with activity, leg edema, lightheadedness, palpitations, rapid heart rate or syncope Respiratory/Chest Respiratory/Chest: Reports none; Denies change in mental status, dry cough, dyspnea, hemoptysis, shortness of breath at rest or shortness of breath with exertion Gastrointestinal Gastrointestinal: Reports none; Denies abdominal pain, change in stool character, diarrhea, hematemesis, hematochezia, melena, rectal bleeding or vomiting Genitourinary Genitourinary ED: Reports none; Denies abdominal discomfort, anuria, dysuria, genital pain or polyuria Musculoskeletal Musculoskeletal: Reports none and other Details: Right knee pain ; Denies arthralgias, back pain, difficulty walking, extremity pain, muscle weakness or myalgias Integumentary Reports none; Denies abscess or rash Neurologic Neurologic: Reports none; Denies abnormal gait, confusion, focal weakness, frequent falls, headache(s), loss of vision, numbness, paresthesias, radicular pain, vertigo or weakness Psychiatric Psychiatric: Reports systems reviewed and no addt'l complaints, except as documented and none; Denies behavioral changes, confusion, difficulty concentrating, hallucinations, suicidal ideation, tactile hallucinations or visual hallucinations Endocrine Endocrinology: Denies none, cold intolerance, excessive sweating, fatigue or heat intolerance Hematologic/Lymphatic Hematologic/Lymphatic: Reports none; Denies anemia, easy bleeding or easy bruising Allergic/Immunologic Allergic/Immunologic ED: Denies as per HPI, none, lip swelling, mouth swelling, throat swelling, tongue swelling or hives EXAM Physical Exam Const Vital Signs: 09/05/21 17:11 Temperature 99.2 F H Temperature Source Temporal Pulse Rate 84 Respiratory Rate 16 Blood Pressure 115/81 H Blood Pressure Mean 92 Pulse Ox 97 Oxygen Delivery Method Room Air Positive well nourished and well developed General Appearance ED: well developed and NAD HEENT Reports TM's clear and moist mucous membranes normocephalic and atraumatic; Negative for trauma or tenderness Tympanic Membrane ED: Yes TM's clear Eyes PERRL and EOMs intact bilaterally General Eye ED: Negative for pale conjunctiva or scleral icterus Neck no lymphadenopathy, supple and no JVD General: Negative for tenderness Chest Wall inspection of chest normal and palpation of chest normal Chest: Negative for tenderness Resp normal respiratory effort and clear to auscultation bilaterally Effort and Inspection: Negative for respiratory distress or pain with movement Auscultation: Negative for rhonchi, wheezes or diminished lung sounds Cardio regular rate, regular rhythm, S1 normal heart sound, S2 normal heart sound and no murmurs Peripheral Pulses: pulses 2+ throughout GI normal to inspection, nondistended, normoactive bowel sounds, soft to palpation, non-tender, non-distended and no masses Back/Spine no CVA tenderness and no thoracic nor lumbar tenderness Extremity Extremity Narrative: Right knee-there is no joint effusion. She is ligamen tously stable. She has some tenderness over the medial joint line on exam. Patient also has some tenderness to palpation over the hamstrings as well as the anterior aspect of the quads near the knee. Neurovascular intact distally. General Extremety ED: Negative for edema General Extremity: Negative for edema Neuro oriented x3, CN's II-XII intact bilaterally, no sensory deficits noted and gait normal Sensorium / Orientation: awake, alert, oriented to person, oriented to place and oriented to time Motor Exam: strength 5/5 throughout and strength abnormal Psych mental status grossly normal Skin no rashes or lesions noted and no wounds MDM MDM MDM Narrative Medical decision making narrative: We discussed possibly obtaining an x-ray although without any direct trauma I feel these would be low yield and patient is in agreement. Patient will be given an Radames wrap and she did not want crutches. She will be given a prescription for few [place]. She is to follow-up with her primary care physician in 5 to 7 days. Patient advised to return if worsening pain, increased swelling, difficulty ambulating, or condition worsen anyway. Discharge Plan Triage Chief Complaint: Lower Extremity Injury ED Provider: Rene Jc Dx/Rx/DC Orders Clinical Impression: Acute pain of right knee Instructions: ED Knee Sprain Prescriptions: New hydrocodone-acetaminophen [hydrocodone-acetaminophen] 1 TABLET tablet 1 tab PO Q4H PRN PRN (Reason: Pain) 2 Days Qty: 10 RF: 0 No Action sumatriptan succinate [Imitrex] 50 mg tablet See Rx Instructions PO .COMPLEX RF: 0 lamotrigine 25 mg tablet See Rx Instructions PO .COMPLEX Qty: 120 RF: 3 epinephrine 0.3 MG syringe 0.3 mg IM PRN RF: 0 lorazepam 0.5 MG tablet 0.5 mg PO TID PRN PRN (Reason: Anxiety) RF: 0 levetiracetam 500 mg tablet 500 mg PO BID Qty: 60 RF: 2 Primary Care Provider: Care Physician,No Primary Referrals: Care Physician,No Primary [Primary Care Provider] - Activity Restrictions/Additional Instructions: See your family doctor in 5 to 7 days. Disposition Disposition: Home, Self Care
== END 2021-09-05 18:13 | disposition home or self-care (01) ==
PROVIDERS: Emergency Provider Emergency Medicine; PCP Family Medicine; Visit Provider Emergency Medicine
DX: M25.561 Pain in right knee (principal); Z87.891 Personal history of nicotine dependence; M79.7 Fibromyalgia
CPT/HCPCS: 99282

== ENCOUNTER → 2021-10-10 | Outpatient (CLI) | payer MEDICARE, MEDICAID, SELFPAY ==
[2021-10-10 08:02] LABS: Absolute Lymphocyte Count 1.69 X10^3/uL (0.83-4.51); Absolute Neutrophil Count 6.7 X10^3/uL (2.0-7.7); Basophil# 0.05 X10^3/uL; Basophil% 0.5 % (0-1); Eosinophil# 0.09 X10^3/uL; Hematocrit 41.3 % (37-47); Hemoglobin 14.1 g/dL (12.0-15.0); Lymphocyte # 1.69 X10^3/ul (0.83-4.51); Lymphocyte % 18.3 % (19-41); Mean Corp Hgb Conc 34.1 g/dL (32-36); Mean Corpuscular Hgb 32.6 pg (27.0-32.0); Mean Corpuscular Volume 95.4 fL (81-99); Monocyte# 0.68 X10^3/uL; Monocyte% 7.3 % (0-10); NRBC Flagged by Analyzer 0 % (0-5); Neutrophil # 6.72 X10^3/uL (2.7-7.7); Neutrophil % 72.6 % (47-70); Platelet Count 218 K/mm3 (150-450); RBC Distribution Width CV 12.1 % (11.6-14.6); RBC Distribution Width SD 42.3 fl (35.1-43.9); Red Blood Count 4.33 M/mm3 (4.2-5.4); White Blood Count 9.3 K/mm3 (4.4-11.0)
[2021-10-10 08:35] LABS: ALB/GLOB Ratio 1.3 RATIO (0.9-2.4); AST(SGOT) 13 U/L (15-37); Alanine Aminotransfer ALT/SGPT 18 U/L (13-56); Albumin, Serum 3.8 g/dL (3.2-5.0); Alkaline Phosphatase 57 U/L (45-117); Anion Gap 2 (5-15); BUN 9 mg/dL (7-18); BUN/Creat Ratio 15.8 RATIO (10-20); Calcium,Total 8.9 mg/dL (8.5-10.1); Chloride 108 mmol/L (98-107); Creatinine, Serum 0.57 mg/dL (0.55-1.02); EST Glomerular Filtration Rate 123 mL/min (>60); Est Glom Filt Rate - Afr Amer 149 mL/min (>60); Glucose 95 mg/dL (74-106); Potassium 4.1 mmol/L (3.5-5.1); Protein, Total 6.8 g/dL (6.4-8.2); Sodium Level 139 mmol/L (136-145)
[2021-10-12 18:17] LABS: Lamotrigine (Lamictal) Level 2.9 ug/mL (2.0-20.0)
== END | disposition home or self-care (01) ==
LOC: LAB 07:45
PROVIDERS: PCP Family Medicine; Referring Provider Psychiatry & Neurology Neurology; Visit Provider Psychiatry & Neurology Neurology
DX: G40.909 Epilepsy, unspecified, not intractable, without status epilepticus (principal); F32.9 Major depressive disorder, single episode, unspecified
CPT/HCPCS: 36415; 80053; 82140; 82542; 85025

== ENCOUNTER 2021-10-11 17:45 | Emergency (ER) | payer MEDICARE, MEDICAID, SELFPAY ==
[2021-10-11 17:47] VITALS: BP 115/73; PULSE 109; RESP 16; TEMP 39.3; O2SAT 98; BMI 21.4
--- NOTE | 2021-10-11 17:57 | EX.ED.DYSGE1 ---
HPI History of Present Illness Chief Complaint: General Illness Narrative Narrative: Patient with past medical history of epilepsy presents with upper respiratory infection type symptoms. She states she feels hot and cold. She has generalized weakness and body aches. She has decreased appetite. She states she did not even know she had a fever until she presented to the emergency department. Her symptoms started yesterday, but became worse today. She feels weak and lethargic. She took Tylenol Cold and flu without relief of her symptoms. She states her son is sick but he did a COVID test which was negative. She took the same test. She presents because of the feelings of hot and cold fluctuating and not feeling well. She states she slept all day until she decided to come to the emergency department. [facility] Medical History (Updated 10/11/21 @ 18:48 by Miguel Leonardo MD) Back pain Fibromyalgia Low glucose level Migraine Recurrent seizures Home Medications epinephrine 0.3 mg IM PRN 10/10/13 [History Last Taken Unknown] lamotrigine 25 mg tablet 75 mg PO BID #180 tab 10/04/21 [Rx Last Taken Unknown] Allergy/AdvReac Type Severity Reaction Status Date / Time dicyclomine HCl [From Bentyl] Allergy Itching Verified 10/11/21 17:49 Iodinated Contrast Media Allergy Other Verified 10/11/21 17:49 venom-honey bee Allergy Anaphylaxis Verified 10/11/21 17:49 [bee venom (honey bee)] Family History Father Hypertension Heart disease Mother Myocardial infarction Brother Cancer Surgical History (Updated 10/11/21 @ 18:18 by Jonny Romero) Cyst of ovary H/O: hysterectomy History of dental surgery Social History Smoking Status: Current every day smoker tobacco type: cigarettes alcohol intake: current details: occasionally substance use type: does not use ROS ROS ED ROS Narrative Constitutional: Subjective fever, no rigors but feels chilled on occasion. Generalized weakness. Fatigue and malaise. HEENT: No sore throat. No neck pain. No loss of vision. No rhinorrhea. Cardiovascular: No chest pain. No palpitations. No pedal edema. Respiratory: Occasional cough, positive shortness of breath. Abdominal: No abdominal pain. No nausea. No vomiting. Genitourinary: No dysuria. No hematuria. Musculoskeletal: Multiple myalgias. No arthralgias. Neurologic: No headaches. No dizziness. No lightheadedness. Skin: No rash. No change in color. Psychiatric: No depression. No anxiety. EXAM Physical Exam Narrative Exam Narrative: Temperature 102?F, vital signs noted. Nontoxic-appearing. HEENT: Normocephalic. Atraumatic. PERRL, EOMI. Neck soft and supple. No point tenderness or step off. Cardiovascular: Mild tachycardia at 105, no murmurs, rubs, or gallops appreciated. Respiratory: No tachypnea. Lungs clear to auscultation bilaterally. Gastrointestinal: Abdomen soft, nontender, with normoactive bowel sounds. No rebound or guarding. Neurological: Awake. Alert. Nonfocal, nonlateralizing. Skin: No rash. Normal color. No pallor. Musculoskeletal: No pedal edema. Full range of motion extremities. Const Vital Signs: 10/11/21 17:47 10/11/21 18:17 Temperature 102.7 F H Temperature Source Temporal Pulse Rate 109 H 97 Respiratory Rate 16 16 Respiratory Effort Normal Respiratory Pattern Normal Blood Pressure 115/73 Blood Pressure Mean 87 Pulse Ox 98 99 Oxygen Delivery Method Room Air Room Air MDM MDM MDM Narrative Medical decision making narrative: Patient was administered ibuprofen 600 mg orally. COVID and influenza swabs were obtained. I will obtain a chest x-ray. Pulse ox is 98% on room air without evidence of hypoxia. Smoking cessation was discussed. Chest x-ray interpreted by myself shows no evidence of an infiltrate. I do not feel antibiotics are indicated. Her COVID swab and influenza swabs are negative. I do feel that she has more of an upper respiratory infection/viral syndrome. Treatment will be symptomatic with [id number] medications as needed. She should follow-up with her primary care physician. Return instructions reviewed. Disposition is discharged home in stable condition. Radiography Diagnostic Testing: Clinical Impression(s) from Imaging Studies Chest X-Ray 10/11/21 18:05 IMPRESSION: No acute cardiopulmonary process. Electronically Signed: Damion Rodas MD at 18:24 EDT Reading Location ID and State: [facility] / [place] Tel , Service support , Discharge Plan Triage Chief Complaint: General Illness Other Complaint: Weakness ED Provider: Miguel Leonardo Dx/Rx/DC Orders Clinical Impression: Viral syndrome, Febrile illness, acute Instructions: ED Fever Control (Adult), ED URI, Viral, No Abx (Adult) Prescriptions: No Action lamotrigine 25 mg tablet 75 mg PO BID Qty: 180 RF: 1 epinephrine 0.3 MG syringe 0.3 mg IM PRN RF: 0 Primary Care Provider: Jaclyn White Referrals: Jaclyn White DO [Primary Care Provider] - 3-5 Days if not improving Disposition Disposition: Home, Self Care
--- NOTE | 2021-10-11 18:05 | RAD_ITS ---
STUDY: X-RAY CHEST REASON FOR EXAM: Female, 41 years old. Fever, SOB TECHNIQUE: 1 view COMPARISON: 12/13/2017 FINDINGS: Cardiomediastinal silhouette is unremarkable. Costophrenic angles are sharp. Lungs are clear. The trachea is midline. There is no pneumothorax. The bones are grossly intact. RAD/Chest 1 View (Portable) IMPRESSION: No acute cardiopulmonary process. Electronically Signed: Damion Rodas MD at 18:24 EDT ,
[2021-10-11] MEDS: Ibuprofen 600 MG Tablet PO (18:15)
[2021-10-11 18:17] VITALS: PULSE 97; RESP 16; O2SAT 99
[2021-10-11 18:49] VITALS: BP 124/78; PULSE 98; RESP 18; TEMP 36.9; O2SAT 98
== END 2021-10-11 18:54 | disposition home or self-care (01) ==
PROVIDERS: Emergency Provider Emergency Medicine; PCP Family Medicine; Visit Provider Emergency Medicine
DX: B34.9 Viral infection, unspecified (principal); R53.1 Weakness; F17.210 Nicotine dependence, cigarettes, uncomplicated; R50.9 Fever, unspecified
CPT/HCPCS: 71045; 87428; 99283

== ENCOUNTER → 2021-12-12 | Outpatient (CLI) | payer MEDICARE, MEDICAID, SELFPAY ==
[2021-12-12 11:16] LABS: Hemoglobin 14.3 g/dL (12.0-15.0); Mean Platelet Vol. 11.2 fl (6.2-12.0); Platelet Count 259 K/mm3 (150-450); RBC Distribution Width CV 12.6 % (11.6-14.6); RBC Distribution Width SD 43.6 fl (35.1-43.9); Red Blood Count 4.47 M/mm3 (4.2-5.4); White Blood Count 8.8 K/mm3 (4.4-11.0)
[2021-12-12 12:01] LABS: ALB/GLOB Ratio 1.2 RATIO (0.9-2.4); AST(SGOT) 17 U/L (15-37); Alanine Aminotransfer ALT/SGPT 22 U/L (13-56); Albumin, Serum 4.1 g/dL (3.2-5.0); Alkaline Phosphatase 71 U/L (45-117); Anion Gap 6 (5-15); BUN 7 mg/dL (7-18); BUN/Creat Ratio 11.9 RATIO (10-20); Calcium,Total 9.7 mg/dL (8.5-10.1); Chloride 103 mmol/L (98-107); Creatinine, Serum 0.59 mg/dL (0.55-1.02); EST Glomerular Filtration Rate 118 mL/min (>60); Est Glom Filt Rate - Afr Amer 143 mL/min (>60); Globulin 3.3 g/dL (2.2-4.2); Glucose 80 mg/dL (74-106); Potassium 3.7 mmol/L (3.5-5.1); Protein, Total 7.4 g/dL (6.4-8.2); Sodium Level 137 mmol/L (136-145)
[2021-12-15 19:51] LABS: Trileptal-Oxcarbazepine 14 ug/mL (10-35)
== END | disposition home or self-care (01) ==
PROVIDERS: PCP Family Medicine; Referring Provider Nurse Practitioner Family; Visit Provider Nurse Practitioner Family
DX: G40.909 Epilepsy, unspecified, not intractable, without status epilepticus (principal); Z51.81 Encounter for therapeutic drug level monitoring
CPT/HCPCS: 36415; 80053; 82542; 85027

== ENCOUNTER → 2022-04-25 | Outpatient (CLI) | payer MEDICARE, MEDICAID, SELFPAY ==
[2022-04-25 11:32] LABS: Hemoglobin 14.5 g/dL (12.0-15.0); Mean Corp Hgb Conc 34.5 g/dL (32-36); Mean Corpuscular Volume 95.5 fL (81-99); Mean Platelet Vol. 11.7 fl (6.2-12.0); Platelet Count 242 K/mm3 (150-450); RBC Distribution Width CV 12.4 % (11.6-14.6); RBC Distribution Width SD 43.7 fl (35.1-43.9); White Blood Count 9.8 K/mm3 (4.4-11.0)
[2022-04-25 12:04] LABS: ALB/GLOB Ratio 1.4 RATIO (0.9-2.4); AST(SGOT) 14 U/L (15-37); Alanine Aminotransfer ALT/SGPT 21 U/L (13-56); Albumin, Serum 4.1 g/dL (3.2-5.0); Alkaline Phosphatase 66 U/L (45-117); Anion Gap 1 (5-15); BUN 6 mg/dL (7-18); BUN/Creat Ratio 11.4 RATIO (10-20); Chloride 108 mmol/L (98-107); Creatinine, Serum 0.52 mg/dL (0.55-1.02); EST Glomerular Filtration Rate 135 mL/min (>60); Est Glom Filt Rate - Afr Amer 163 mL/min (>60); Glucose 89 mg/dL (74-106); Potassium 4.1 mmol/L (3.5-5.1); Protein, Total 7.1 g/dL (6.4-8.2); Sodium Level 139 mmol/L (136-145)
[2022-05-01 15:59] LABS: Trileptal-Oxcarbazepine 12 ug/mL (10-35)
== END | disposition home or self-care (01) ==
LOC: LAB 10:36
PROVIDERS: PCP Family Medicine; Referring Provider Psychiatry & Neurology Neurology; Visit Provider Psychiatry & Neurology Neurology
DX: G40.909 Epilepsy, unspecified, not intractable, without status epilepticus (principal)
CPT/HCPCS: 36415; 80053; 82542; 85027

== ENCOUNTER 2022-08-17 10:53 | Emergency (ER) | payer MEDICARE, MEDICAID, SELFPAY ==
[2022-08-17 10:54] VITALS: BP 145/102; PULSE 61; RESP 18; TEMP 36.4; O2SAT 100; BMI 22.6
--- NOTE | 2022-08-17 11:06 | CT_ITS ---
HISTORY: Seizure, mass. TECHNIQUE: Multiple axial images were obtained of the head without intravenous contrast. A radiation dose optimization technique was used for this scan. 238 images. COMPARISON: 08/11/2021. FINDINGS: BRAIN PARENCHYMA: No significant attenuation abnormality. Old lacunar infarct or prominent perivascular space in the left basal ganglia again seen. No acute intra-axial hemorrhage. CSF SPACES: Cerebral ventricles, cortical sulci, and other extra-axial CSF spaces within normal limits in size for age. No midline shift or other significant mass effect. No acute extra-axial hemorrhage. OTHER: Intact calvarium. No significant air fluid levels in the paranasal sinuses or mastoid air cells. Unremarkable orbits. CT/Brain/Head without Contrast IMPRESSION: No acute intracranial process identified. Electronically Signed: Lisa Myers MD at 12:07 EDT ,
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
[2022-08-17 11:15] LABS: Bedside Glucose 101 mg/dL (74-106)
[2022-08-17 11:20] LABS: Absolute Lymphocyte Count 1.32 X10^3/uL (0.83-4.51); Absolute Neutrophil Count 4.5 X10^3/uL (2.0-7.7); Basophil# 0.04 X10^3/uL; Basophil% 0.6 % (0-1); Eosinophil# 0.05 X10^3/uL; Eosinophils% 0.8 % (0-5); Hematocrit 43.8 % (37-47); Hemoglobin 14.8 g/dL (12.0-15.0); Lymphocyte # 1.32 X10^3/ul (0.83-4.51); Lymphocyte % 20.7 % (19-41); Mean Corp Hgb Conc 33.8 g/dL (32-36); Mean Corpuscular Hgb 31.4 pg (27.0-32.0); Mean Platelet Vol. 11.7 fl (6.2-12.0); Monocyte# 0.48 X10^3/uL; Monocyte% 7.5 % (0-10); NRBC Flagged by Analyzer 0 % (0-5); Neutrophil # 4.48 X10^3/uL (2.7-7.7); Neutrophil % 70.1 % (47-70); Platelet Count 286 K/mm3 (150-450); RBC Distribution Width CV 12.4 % (11.6-14.6); RBC Distribution Width SD 42.6 fl (35.1-43.9); Red Blood Count 4.71 M/mm3 (4.2-5.4); White Blood Count 6.4 K/mm3 (4.4-11.0)
[2022-08-17] MEDS: Ondansetron 4 MG/2 ML Vial IV (11:29)
[2022-08-17] MEDS: 0.9% Normal Saline 1,000 ML 1000 ML IV (11:29)
[2022-08-17 11:31] LABS: Anion Gap 5 (5-15); BUN 5 mg/dL (7-18); BUN/Creat Ratio 9.4 RATIO (10-20); Calcium,Total 9.2 mg/dL (8.5-10.1); Chloride 106 mmol/L (98-107); Creatinine, Serum 0.53 mg/dL (0.55-1.02); EST Glomerular Filtration Rate 133 mL/min (>60); Est Glom Filt Rate - Afr Amer 161 mL/min (>60); Estimated Creatinine Clearance 108.25 ml/min; Glucose 105 mg/dL (74-106); Potassium 3.9 mmol/L (3.5-5.1); Sodium Level 138 mmol/L (136-145)
[2022-08-17 12:21] LABS: Amphetamine Urine VISTA NEGATIVE (<1000 ng/mL); Barbiturate Urine VISTA NEGATIVE (< 200 ng/mL); Benzodiazepine Urine VISTA NEGATIVE (< 200 ng/mL); Cocaine Urine VISTA NEGATIVE (< 300 ng/mL); Ecstacy Urine VISTA NEGATIVE (< 500 ng/mL); Methadone Urine VISTA NEGATIVE (< 300 ng/mL); PCP Urine VISTA NEGATIVE (< 25 ng/mL); THC Urine VISTA NEGATIVE (< 50 ng/mL); Vista UDS pH Range 8
[2022-08-17 12:53] VITALS: BP 108/80; PULSE 61; RESP 14; O2SAT 100
[2022-08-17 13:09] LABS: Mucous, Urine 0 SEEN /hpf (<or=2+); Red Blood Cells-Urine 0 SEEN /hpf (0-5); White Blood Cells 0 SEEN /hpf (0-5)
[2022-08-17 13:11] LABS: Color, Urine Yellow (Yellow); Glucose, Dipstick 100 mg/dl (Normal); Ketone-Dipstick Negative (Negative); Leukocyte Esterase-Dipstick Negative /ul (Negative); Nitrite-Dipstick Negative (Negative); Occult Blood-Urine Negative /ul (Negative); Protein-Dipstick Negative (Negative); Specific Gravity, Urine 1.015 (1.002-1.030); Urine Bilirubin Dipstick Negative (Negative); Urine Clarity Clear (Clear); Urine Urobilinogen Normal (Normal)
[2022-08-17 13:23] LABS: Bacteria RARE /hpf (None Seen); Squamous Epithelial Cells - UA 0-5 SEEN /hpf (5-10)
== END 2022-08-17 14:05 | disposition home or self-care (01) ==
PROVIDERS: Emergency Provider Emergency Medicine; PCP Family Medicine; Visit Provider Emergency Medicine
DX: R56.9 Unspecified convulsions (principal); F17.210 Nicotine dependence, cigarettes, uncomplicated; Z79.899 Other long term (current) drug therapy
CPT/HCPCS: 70450; 80048; 80307; 81001; 82962; 85025; 96361; 96374; 99283; J7030; J2405

== ENCOUNTER → 2022-09-17 | Outpatient (CLI) | payer MEDICARE, MEDICAID, SELFPAY ==
--- NOTE | 2022-09-17 | BRBX_PTH ---
PATIENT: YARIEL JACOBSEN LOC: [facility] U#:[id number] AGE/SX: 42/F ROOM: RE09/17/[address]: Dr. Uog Brokc MD : 1980 BED: DIS: 09/17/2022 SPEC #: [id number] RECD: 09/17/22 11:54 STATUS: HUY KELTON #: [id number] MARY: 09/17/22 00:[address]: Ugo Brock DEPT: SURGICAL PATHOLOGY RECD BY: Mayank Garcia ENTERED: 09/17/22 13:05 SP TYPE: BREAST BX OTHR DR: Dr. Jaclyn White DO Tissues: Right breast, NOS Procedures: Surgery Specimen Level IV HEADER OPERATION: Right breast stereotactic needle core biopsy PRE-OP DIAGNOSIS: Right upper outer quadrant medial depth calcifications TISSUE SUBMITTED: Right breast core tissue ISCHEMIC TIME: 1 minute FIXATION TIME: 8 hours MICROSCOPIC DIAGNOSIS Right breast, upper quadrant, stereotactic core biopsy: Fibrocystic change. Focal banal microcalcifications. Focal intraductal hyperplasia without atypia. No evidence of malignancy. AM:agustina 09/18/2022 MICROSCOPIC DESCRIPTION Slides are reviewed. GROSS DESCRIPTION Received in fixative is one container labeled with the patient's name and designated right breast. The specimen consists of multiple elongated fragments of jefferson-yellow fibroadipose tissue mixed with a few blood clots that in aggregate measure 7.5 x 3.0 x 0.3 cm. The entire specimen is submitted in three cassettes. / SJ:agustina 09/17/2022 TC:5 CPT: 70685
--- NOTE | 2022-09-17 12:03 | PCM.OPRPT ---
Problems Associated Problem List Diagnoses (1) Microcalcifications of the breast: Report of Operation Date of Procedure: 09/17/22 Pre-Operative Diagnosis: Microcalcifications right breast Post-Operative Diagnosis: Same Surgery/Procedure Performed:: Right stereotactic breast biopsy Surgeon: Ugo Brock Type of Anesthesia: Local Specimen's removed: Right breast tissue Estimated Blood Loss (mL): < 15 cc Description of Procedure: Patient was brought into the mammography unit. Placed in the supine position on the fissure table. Cc view was obtained of the lesion. ?10 degree views were obtained. I targeted on the microcalcifications. I prepped the breast with alcohol. I injected 1% lidocaine plain. A skin jean carlos was made. I placed a needle in the prefire position. I fired the needle. I took 360 degrees circumferential biopsies. I x-rayed my specimen. Microcalcifications were identified. I placed a small petite clip in the biopsy cavity. I x-ray my breast the clip was then placed there were a few small microcalcifications still left behind. But the majority of the microcalcifications were removed. Patient was taken out Steri-Strips were applied sterile dressings were obtained standard mammograms were obtained she tolerated the procedure well. Admit VTE Documentation VTE Present on Admission: No VTE Mechan Device Prophylaxis: SCD's VTE Pharm Prophylaxis ordered?: No Reason prophylaxis not ordered:: Treatment Not Indicated
== END | disposition home or self-care (01) ==
LOC: BIRAD 10:40
PROVIDERS: PCP Family Medicine; Referring Provider Surgery; Visit Provider Surgery
DX: R92.0 Mammographic microcalcification found on diagnostic imaging of breast (principal); N60.11 Diffuse cystic mastopathy of right breast
CPT/HCPCS: 19081; 88305; J7050

== ENCOUNTER 2023-03-11 16:12 | Emergency (ER) | payer MEDICARE, MEDICAID, SELFPAY ==
[2023-03-11 16:13] VITALS: BP 100/68; PULSE 99; RESP 18; TEMP 36.7; O2SAT 98
== END 2023-03-11 16:40 | disposition left against medical advice (07) ==
LOC: ED 16:43
PROVIDERS: PCP Nurse Practitioner Family
DX: R69 Illness, unspecified (principal)

== ENCOUNTER → 2023-09-04 | Outpatient (CLI) | payer MEDICARE, MEDICAID, SELFPAY ==
[2023-09-04 18:12] LABS: Absolute Lymphocyte Count 1.53 X10^3/uL (0.83-4.51); Absolute Neutrophil Count 5.4 X10^3/uL (2.0-7.7); Basophil# 0.04 X10^3/uL; Basophil% 0.5 % (0-1); Eosinophil# 0.05 X10^3/uL; Eosinophils% 0.6 % (0-5); Hemoglobin 13.9 g/dL (12.0-15.0); Lymphocyte # 1.53 X10^3/ul (0.83-4.51); Lymphocyte % 19.7 % (19-41); Mean Corp Hgb Conc 33.1 g/dL (32-36); Mean Corpuscular Hgb 30.6 pg (27.0-32.0); Mean Corpuscular Volume 92.5 fL (81-99); NRBC Flagged by Analyzer 0 % (0-5); Neutrophil % 69.8 % (47-70); Platelet Count 212 K/mm3 (150-450); RBC Distribution Width CV 12.4 % (11.6-14.6); RBC Distribution Width SD 41.9 fl (35.1-43.9); Red Blood Count 4.54 M/mm3 (4.2-5.4); White Blood Count 7.8 K/mm3 (4.4-11.0)
[2023-09-04 18:34] LABS: ALB/GLOB Ratio 1.2 RATIO (0.9-2.4); AST(SGOT) 14 U/L (15-37); Alanine Aminotransfer ALT/SGPT 24 U/L (13-56); Alkaline Phosphatase 70 U/L (45-117); Anion Gap 3 (5-15); BUN 10 mg/dL (7-18); BUN/Creat Ratio 18.2 RATIO (10-20); CRP < 2.90 mg/L (0.0-3.0); Calcium,Total 9.2 mg/dL (8.5-10.1); Chloride 107 mmol/L (98-107); Creatinine, Serum 0.55 mg/dL (0.55-1.02); EST Glomerular Filtration Rate 127 mL/min (>60); Est Glom Filt Rate - Afr Amer 154 mL/min (>60); Globulin 3.4 g/dL (2.2-4.2); Glucose 97 mg/dL (74-106); Lipase 30 U/L (13-75); Potassium 3.8 mmol/L (3.5-5.1); Protein, Total 7.4 g/dL (6.4-8.2); Sodium Level 137 mmol/L (136-145)
[2023-09-04 19:19] LABS: Erythrocyte Sedimentation Rate < 1 mm/hr (0-30)
== END | disposition home or self-care (01) ==
LOC: LAB 17:58
PROVIDERS: PCP Nurse Practitioner Family; Referring Provider Nurse Practitioner Primary Care; Visit Provider Nurse Practitioner Primary Care
DX: R10.11 Right upper quadrant pain (principal)
CPT/HCPCS: 36415; 80053; 83690; 85025; 85652; 86140

== ENCOUNTER → 2023-09-05 | Outpatient (CLI) | payer MEDICARE, MEDICAID, SELFPAY ==
--- NOTE | 2023-09-05 10:07 | US_ITS ---
STUDY: ABDOMINAL ULTRASOUND - RIGHT UPPER QUADRANT REASON FOR VISIT: Female, 42 years old RUQ PAIN TECHNIQUE: Ultrasound evaluation of the right upper quadrant was performed with real-time and static guerrero-scale imaging. TECHNICAL QUALITY: Adequate. COMPARISON: None. FINDINGS: Liver: The liver is mildly enlarged and measures 18 cm. There is normal echogenicity of the liver. The bile ducts are within normal limits. There is hepatic color flow. The direction of portal flow is hepatopetal. There is no demonstrated mass lesion. Gallbladder: Normal distended gallbladder. The gallbladder wall measures 2.1 mm. There is a negative sonographic Ochoa''s sign. There is no pericholecystic fluid. There are no gallstones. There is a 2 mm x 2 mm x 3 mm polyp adherent to the gallbladder wall. Common Bile Duct (C.B.D.): The common bile duct measures 4.3 mm. Pancreas: Normal size of the head, body and tail of the pancreas. There is normal echogenicity of the pancreas. There is no demonstrated pancreatic mass or cyst. There are 2 well-circumscribed hypoechoic nodules adjacent to the head of the pancreas. The larger measures 1.6 cm x 1.3 cm x 0.6 cm. These may represent small peripancreatic lymph nodes. Right Kidney: Normal size of the right kidney. The right kidney measures 11.6 cm x 5.6 x 4 cm. Normal renal cortex. The right cortex measures 1.1 cm. There is a 2 cm x 2.2 cm x 2.3 cm cyst. There is no right hydronephrosis. US/Abdomen Limited IMPRESSION: Mild hepatomegaly. Findings suggestive of a tube, small lymph nodes in the region of the head of the pancreas. Correlation with the CT scan of the abdomen recommended. 2 mm x 2 mm x 3 mm gallbladder polyp. Electronically Signed: Jarrod Florence MD at 11:20 EDT ,
== END | disposition home or self-care (01) ==
PROVIDERS: PCP Nurse Practitioner Family; Referring Provider Nurse Practitioner Primary Care; Visit Provider Nurse Practitioner Primary Care
DX: R10.11 Right upper quadrant pain (principal)
CPT/HCPCS: 76705

== ENCOUNTER → 2023-09-23 | Outpatient (CLI) | payer MEDICARE, MEDICAID, SELFPAY ==
[2023-09-23 08:18] LABS: Hematocrit 42.2 % (37-47); Hemoglobin 13.9 g/dL (12.0-15.0); Mean Corp Hgb Conc 32.9 g/dL (32-36); Mean Corpuscular Hgb 30.8 pg (27.0-32.0); Mean Corpuscular Volume 93.4 fL (81-99); Mean Platelet Vol. 11.4 fl (6.2-12.0); Platelet Count 237 K/mm3 (150-450); RBC Distribution Width CV 12.3 % (11.6-14.6); RBC Distribution Width SD 42.5 fl (35.1-43.9); Red Blood Count 4.52 M/mm3 (4.2-5.4); White Blood Count 6.5 K/mm3 (4.4-11.0)
[2023-09-23 09:02] LABS: ALB/GLOB Ratio 1.3 RATIO (0.9-2.4); AST(SGOT) 14 U/L (15-37); Alanine Aminotransfer ALT/SGPT 19 U/L (13-56); Albumin, Serum 3.8 g/dL (3.2-5.0); Alkaline Phosphatase 66 U/L (45-117); Anion Gap 4 (5-15); BUN 8 mg/dL (7-18); BUN/Creat Ratio 16.2 RATIO (10-20); Calcium,Total 9.2 mg/dL (8.5-10.1); Chloride 107 mmol/L (98-107); EST Glomerular Filtration Rate 143 mL/min (>60); Est Glom Filt Rate - Afr Amer 174 mL/min (>60); Glucose 89 mg/dL (74-106); Potassium 3.9 mmol/L (3.5-5.1); Protein, Total 6.8 g/dL (6.4-8.2); Sodium Level 140 mmol/L (136-145)
[2023-09-27 16:09] LABS: Trileptal-Oxcarbazepine 17 ug/mL (10-35)
== END | disposition home or self-care (01) ==
LOC: LAB 07:22
PROVIDERS: PCP Nurse Practitioner Family; Referring Provider Psychiatry & Neurology Neurology; Visit Provider Psychiatry & Neurology Neurology
DX: G40.909 Epilepsy, unspecified, not intractable, without status epilepticus (principal)
CPT/HCPCS: 36415; 80053; 82542; 85027

== ENCOUNTER → 2023-10-04 | Outpatient (CLI) | payer MEDICARE, SELFPAY ==
--- NOTE | 2023-10-04 13:16 | CT_ITS ---
STUDY: CT ABDOMEN WITH CONTRAST REASON FOR EXAM: Female, 43 years old. PANCREATIC LESION RADIATION DOSAGE (If Supplied By Facility): CTDIvol = ( 12.65 ) mGy, DLP = ( 175.68 ) mGycm TECHNIQUE: Transaxial images were obtained post I.V. administration of Oral and amp; IV Readi-CAT and amp; 100mL Isovue-300, and with oral contrast. Sagittal and coronal images were reconstructed. Individualized dose optimization techniques were used for this CT. COMPARISON: Comparison is made with prior study dated August 28, 2020 and prior ultrasound the abdomen dated September 05, 2023. FINDINGS: The visualized lung bases are unremarkable. The visualized portions of the heart are within normal limits. There is hepatomegaly with diffuse hepatic enlargement. Normal gallbladder and extrahepatic biliary system. Normal spleen. Normal pancreas. Normal bilateral adrenal glands. There is a 2.1 cm cyst in the upper aspect of the right kidney. Normal left kidney. Normal visualized stomach. Normal small intestine. Large amount of fecal material is seen in the right hemicolon. The appendix is visualized and appears normal. Normal abdominal aorta. Normal inferior vena cava. Normal retroperitoneum. Normal abdominal wall. Normal osseous structures. CT/Abdomen WITH IV Contrast IMPRESSION: Hepatomegaly. Stable right renal cyst. No pancreatic abnormality is seen. Electronically Signed: Jarrod Florence MD at 14:54 EDT ,
== END | disposition home or self-care (01) ==
PROVIDERS: PCP Nurse Practitioner Family; Referring Provider Nurse Practitioner Primary Care; Visit Provider Nurse Practitioner Primary Care
DX: K86.9 Disease of pancreas, unspecified (principal)
CPT/HCPCS: 74160; Q9967

== ENCOUNTER → 2024-01-14 | Outpatient (CLI) | payer MEDICARE, SELFPAY ==
[2024-01-14 12:00] LABS: Erythrocyte Sedimentation Rate 2 mm/hr (0-30)
[2024-01-14 14:12] LABS: ALB/GLOB Ratio 1.1 RATIO (0.9-2.4); AST(SGOT) 12 U/L (15-37); Alanine Aminotransfer ALT/SGPT 20 U/L (13-56); Albumin, Serum 3.8 g/dL (3.2-5.0); Alkaline Phosphatase 74 U/L (45-117); Anion Gap 9 (5-15); BUN 6 mg/dL (7-18); BUN/Creat Ratio 11.2 RATIO (10-20); CRP < 2.90 mg/L (0.0-3.0); Calcium,Total 9.5 mg/dL (8.5-10.1); Chloride 104 mmol/L (98-107); Creatinine, Serum 0.54 mg/dL (0.55-1.02); EST Glomerular Filtration Rate 131 mL/min (>60); Est Glom Filt Rate - Afr Amer 158 mL/min (>60); Globulin 3.4 g/dL (2.2-4.2); Glucose 84 mg/dL (74-106); LDH 180 U/L (84-246); Potassium 3.9 mmol/L (3.5-5.1); Protein, Total 7.2 g/dL (6.4-8.2); Sodium Level 139 mmol/L (136-145)
[2024-01-18 06:10] LABS: ACCA 8 units (0-90); ALCA 54 units (0-60); AMCA 12 units (0-100); Angiotensin Convert Enzyme 57 U/L (14-82); Anti-Smooth Muscle ABS 4 Units (0-19); Cytoplasmic Ab (C-ANCA) <1:20 titer (Neg:<1:20); Endomysial Antibody IgA Negative (Negative); Immunoglobulin A 95 mg/dL (87-352); Immunoglobulin E 37 IU/mL (6-495); Immunoglobulin G 894 mg/dL (586-1602); Immunoglobulin M 67 mg/dL (26-217); Perinuclear Ab (P-ANCA) <1:20 titer (Neg:<1:20); QNTFERON TB Mitogen Value > 10.00 IU/mL (.); QNTFERON TB Nil Value 0 IU/mL (.); QNTFERON TB1+ Ag Value 0.01 IU/mL (.); QNTFERON TB2+ Ag Value 0.01 IU/mL (.); QNTIFERON TB Positive Criteria Negative (Negative); gASCA 13 units (0-50); t-Transglutaminase IgA <2 U/mL (0-3)
[2024-01-19 19:06] LABS: Anti-Centromere B Ab <0.2 AI (0.0-0.9); Anti-Chromatin <0.2 AI (0.0-0.9); Anti-Jo <0.2 AI (0.0-0.9); Anti-Mitochondrial AB <20.0 Units (0.0-20.0); Anti-Scleroderma-70 AB <0.2 AI (0.0-0.9); Anti-dsDNA Ab <1 IU/mL (0-9); Beef <0.10 kU/L (Class 0); Chocolate <0.10 kU/L (Class 0); Codfish <0.10 kU/L (Class 0); Corn <0.10 kU/L (Class 0); Egg, Whole <0.10 kU/L (Class 0); Milk (Cow) <0.10 kU/L (Class 0); Mussels <0.10 kU/L (Class 0); Peanut <0.10 kU/L (Class 0); Pork <0.10 kU/L (Class 0); RNP Ab <0.2 AI (0.0-0.9); SJOGREN'S Anti-SS-A test < 0.2 AI (0.0-0.9); SJOGREN'S Anti-SS-B test < 0.2 AI (0.0-0.9); Salmon <0.10 kU/L (Class 0); Shrimp <0.10 kU/L (Class 0); Smith Ab <0.2 AI (0.0-0.9); Soybean <0.10 kU/L (Class 0); Tuna <0.10 kU/L (Class 0); Wheat <0.10 kU/L (Class 0)
== END | disposition home or self-care (01) ==
LOC: LAB 11:14
PROVIDERS: PCP Nurse Practitioner Family; Referring Provider Internal Medicine Gastroenterology; Visit Provider Internal Medicine Gastroenterology
DX: R10.30 Lower abdominal pain, unspecified (principal)
CPT/HCPCS: 36415; 80053; 82164; 82784; 82785; 83516; 83615; 85652; 86003; 86005; 86036; 86140; 86225; 86235; 86255; 86256; 86480; 86671

== ENCOUNTER → 2024-01-15 | Outpatient (CLI) | payer MEDICARE, MEDICAID, SELFPAY ==
[2024-01-17 01:07] LABS: Pancreatic Elastase, Fecal > 800 (>200)
[2024-01-24 19:07] LABS: Calprotectin, Stool 97 ug/g (0-120); Fats, Neutral Normal (.); Fats, Total Increased (.)
== END | disposition home or self-care (01) ==
PROVIDERS: PCP Nurse Practitioner Family; Referring Provider Internal Medicine Gastroenterology; Visit Provider Internal Medicine Gastroenterology
DX: R19.7 Diarrhea, unspecified (principal); K58.9 Irritable bowel syndrome, unspecified; R10.30 Lower abdominal pain, unspecified
CPT/HCPCS: 82653; 82705; 83630; 83993; 87177; 87209; 87329; 87493; 87506

== ENCOUNTER → 2024-02-04 | Outpatient (CLI) | payer MEDICARE, MEDICAID, SELFPAY ==
--- NOTE | 2024-02-04 07:46 | CT_ITS ---
EXAM: CT ABDOMEN AND PELVIS WITH INTRAVENOUS CONTRAST CLINICAL INDICATION: abdominal pain TECHNIQUE: Helically acquired images were obtained of the abdomen and pelvis with intravenous contrast. This CT exam was performed using one or more of the following dose reduction techniques: automated exposure control, adjustment of the mA and/or kV according to patient size, and/or use of iterative reconstruction technique. CONTRAST: 100 cc of Isovue-370 IV. With oral contrast. RADIATION DOSE: CTDIvol = 10.95 mGy, DLP = 395.29 mGy-cm COMPARISON: No relevant prior studies available. FINDINGS: LOWER THORAX: Unremarkable. Lung bases are clear. No cardiomegaly. No significant pericardial effusion. ABDOMEN: LIVER: Unremarkable. Homogeneous. No focal mass. GALLBLADDER AND BILE DUCTS: Unremarkable. No calcified gallstones. No gallbladder distention or wall edema. No intra- or extrahepatic biliary ductal dilation. PANCREAS: Unremarkable. No focal cystic or solid mass. SPLEEN: Unremarkable. Normal size without focal cystic or solid mass. ADRENALS: Unremarkable. No nodules. KIDNEYS AND URETERS: Simple bilateral renal cysts. No follow-up of these simple cysts is necessary. Normal renal size and position. No hydronephrosis. STOMACH AND BOWEL: Unremarkable. No stomach or bowel distention. No focal inflammatory change. PELVIS: APPENDIX: Normal appendix. BLADDER: Unremarkable. REPRODUCTIVE: Hysterectomy. ABDOMEN and PELVIS: INTRAPERITONEAL SPACE: Unremarkable. No ascites or other fluid collection. No free air. BONES/JOINTS: Unremarkable. No suspicious lytic or blastic abnormality. SOFT TISSUES: Unremarkable. No discrete abdominal or pelvic wall hernia. VASCULATURE: Unremarkable. Abdominal aorta is non-dilated. LYMPH NODES: Unremarkable. No enlarged lymph nodes. CT/Abdomen/Pelvis WITH Contrast IMPRESSION: 1. No acute abdominal pelvic abnormality. 2. Hysterectomy. Electronically Signed: Kristofer Islas MD at 7:25 EDT ,
== END | disposition home or self-care (01) ==
PROVIDERS: PCP Nurse Practitioner Family; Referring Provider Internal Medicine Gastroenterology; Visit Provider Internal Medicine Gastroenterology
DX: R10.30 Lower abdominal pain, unspecified (principal)
CPT/HCPCS: 74177; Q9967

== ENCOUNTER → 2024-02-07 | Outpatient (CLI) | payer MEDICARE, MEDICAID, SELFPAY ==
--- NOTE | 2024-02-07 09:43 | NM_ITS ---
CLINICAL: 43-year-old female with history of abdominal pain. SEMI-SOLID PHASE 99m Tc SULFUR COLLOID GASTRIC EMPTYING STUDY COMPARISON: CT of the abdomen-pelvis report 02/04/2024 FINDINGS: The patient was administered 1.2 mCi of 99m Tc sulfur colloid mixed with oatmeal and consumed per os. Image acquisitions in the anterior-posterior projections were obtained for 60 minutes. There is prompt visualization of the stomach. There is no gastroesophageal reflux identified. The T ? raw data emptying was calculated to be 50.34 minutes, (Normal: 12-56 minutes). NM/Gastric Emptying Study IMPRESSION: 1. NORMAL 99m Tc sulfur colloid semi-solid phase (oatmeal) gastric emptying imaging examination. A. There is normal and preserved semi-solid phase gastric emptying compared to normal controls. (Estefani et al, J Nucl Med Tech 38: 186, 2010). Electronically Signed: Bharat Solis DO at 9:13 EDT ,
== END | disposition home or self-care (01) ==
LOC: NM 09:42
PROVIDERS: PCP Nurse Practitioner Family; Referring Provider Internal Medicine Gastroenterology; Visit Provider Internal Medicine Gastroenterology
DX: R10.30 Lower abdominal pain, unspecified (principal)
CPT/HCPCS: 78264; A9541

== ENCOUNTER → 2024-10-07 | Outpatient (CLI) | payer MEDICARE, MEDICAID, SELFPAY ==
[2024-10-07 10:52] LABS: Hematocrit 42.4 % (37-47); Mean Corp Hgb Conc 35.4 g/dL (32-36); Mean Corpuscular Hgb 31.8 pg (27.0-32.0); Mean Corpuscular Volume 89.8 fL (81-99); Mean Platelet Vol. 11.9 fl (6.2-12.0); Platelet Count 223 K/mm3 (150-450); RBC Distribution Width CV 12.2 % (11.6-14.6); RBC Distribution Width SD 39.8 fl (35.1-43.9); Red Blood Count 4.72 M/mm3 (4.2-5.4); White Blood Count 6.4 K/mm3 (4.4-11.0)
[2024-10-07 12:00] LABS: ALB/GLOB Ratio 1.7 RATIO (0.9-2.4); AST(SGOT) 20 U/L (<=31); Alanine Aminotransfer ALT/SGPT 11 U/L (<=34); Albumin, Serum 4.6 g/dL (3.5-5.0); Alkaline Phosphatase 61 U/L (35-104); Anion Gap 11 (5-15); BUN 7 mg/dL (4-19); BUN/Creat Ratio 13.8 RATIO (10-20); Calcium,Total 9.5 mg/dL (7.6-11.0); Carbon Dioxide 23.7 mmol/L (21.0-32.0); Chloride 101 mmol/L (98-108); Creatinine, Serum 0.54 mg/dL (0.70-1.20); EST Glomerular Filtration Rate 115 (>60); Globulin 2.6 g/dL (2.2-4.2); Glucose 92 mg/dL (70-99); Magnesium 2.4 mg/dL (1.5-2.2); Potassium 3.9 mmol/L (3.3-5.1); Protein, Total 7.2 g/dL (5.9-8.4); Sodium Level 136 mmol/L (133-145); Total Bilirubin 0.54 mg/dL (0.00-1.30)
== END | disposition home or self-care (01) ==
LOC: LAB 09:23
PROVIDERS: PCP Nurse Practitioner Family; Referring Provider Psychiatry & Neurology Neurology; Visit Provider Psychiatry & Neurology Neurology
DX: G40.909 Epilepsy, unspecified, not intractable, without status epilepticus (principal)
CPT/HCPCS: 36415; 80053; 82542; 83735; 85027